=== PATIENT | male | born 1960 | race Caucasian/White ===

== ENCOUNTER 2024-07-21 14:32 | Outpatient (REF) | payer MEDICARE, MEDICAID, SELFPAY ==
[2024-07-21 18:40] LABS: Appearance Urine Clear; Color Urine Yellow; Glucose Urine UA Negative (Negative); Leukocyte Esterase Urine Negative (Negative); Nitrite Urine Negative (Negative); Urine Blood Negative (Negative); Urine Ketones Negative (Negative); Urine Protein Negative (Neg-Trace)
[2024-07-21 18:50] LABS: Protein/Creatinine Ratio, Ur 0.09 (<0.2); Total Protein Urine Random 11 mg/dL (<12)
[2024-07-21 18:53] LABS: Anion Gap 13 (12-20); Blood Urea Nitrogen 23 mg/dL (9-16); Carbon Dioxide 23 mmol/L (22-29); Chloride 107 mmol/L (96-108); Estimated Glomerular Filt Rate > 60; Potassium 4.1 mmol/L (3.3-5.1); Sodium 139 mmol/L (135-145)
[2024-07-24 17:03] LABS: IgA 350 mg/dL (70-320); IgG 1135 mg/dL (600-1540); IgM 59 mg/dL (50-300)
== END 2024-07-21 14:33 | disposition home or self-care (01) ==
LOC: HO.HKASLDS 14:32
PROVIDERS: Visit Provider Internal Medicine Nephrology
DX: N02.B9 Other recurrent and persistent immunoglobulin A nephropathy (principal); I10 Essential (primary) hypertension
CPT/HCPCS: 36415; 80051; 81003; 82565; 82570; 82784; 84156; 84520; 86334; 99202

== ENCOUNTER 2024-07-21 14:32 | Outpatient (AMB) | payer MEDICARE, MEDICAID, SELFPAY ==
--- NOTE | 2024-07-21 14:35 | HO.NEPHOV ---
Vital Signs 07/21/24 14:41 Weight 269 lb 2 oz BP 140/90 H Blood Pressure Location Rt brachial Position Sitting Intake Visit Reasons: DX CKD-Conf [employer] Consultant Required: No Accompanied by: Self / Same As Patient Allergies No Known Allergies Allergy (Verified 07/21/24 14:39) HPI Comments Details: I had the pleasure and privilege of seeing Jose in consultation for transfer of his renal care. He recently has moved to [place] from [place]. 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 He had undergone treatment with high-dose steroids which has been tapered off. He has gained quite a bit of weight on prednisone. He is not a diabetic. He does not monitor his blood pressure at home. He has history of AFib and had undergone cardioversion multiple times. He is currently on diltiazem as well as warfarin. He has hypothyroidism and is well controlled on levothyroxine. He has history of minimal proteinuria and is tolerating lisinopril he had undergone cardiac catheterization in the past but denied any significant coronary artery disease.. He had history of hematuria in the past and has seen urology in [place]. He is known to have a renal cyst but further workup done was negative for hematuria. He has no proteinuria now. He is known to have bilateral carotid disease. He denies any recurrent sinusitis, upper respiratory infection, skin rash. He has history of lymphedema. He does not take nonsteroidal anti-inflammatories and maintain good hydration. He has dyslipidemia and is on statins. He denies chest pain, shortness of breath, paroxysmal nocturnal dyspnea, orthopnea or urinary symptoms. He has not had any blood work done for some time. He claims to be compliant with his medications. [facility] Medical History (Updated 07/21/24 @ 21:50 by David Lao MD) History of cardioversion Low back pain Tabetic joint Benign essential hypertension Anemia Hypothyroidism Open wound of foot Disorder of carotid artery Ventricular premature beats Coronary arteriosclerosis Induratio penis plastica Spasm Unspecified disorder of ankle and foot joint Ulcer of foot Atrial fibrillation Blood in urine Azotemia Methicillin resistant Staphylococcus aureus infection, unspecified site Abscess of foot Chronic renal impairment Renal mass Osteoporosis Blood coagulation disorder Hyperlipidemia Surgical History (Updated 07/21/24 @ 14:39 by Kimberly Sandoval MA) H/O cardiac catheterization History of bunionectomy History of cataract surgery H/O biopsy of kidney H/O thumb surgery H/O ankle fusion H/O foot surgery Family History Mother Diabetes Father No problems noted. Social History (Updated 07/21/24 @ 14:36 by Kimberly Sandoval MA) Alcohol intake: never Patient Tobacco Use Status: Former Tobacco user Review of Systems Const All systems reviewed & are unremarkable except as noted in HPI and below Physical Exam Vital Signs: Last Vital Signs BP 140/90 H 07/21/24 14:41 Const General: comfortable and no acute distress Orientation/consciousness: patient oriented x3 HEENT Head: Yes normocephalic Mouth: Normal oral and palatal mucosa present Eyes EOM: EOMs intact bilaterally Neck Neck: Yes supple Resp Auscultation: clear to auscultation bilaterally Cardio Jugular venous distension: no JVD Rate: regular rate GI Palpation (GI): Soft to palpation Auscultation: normal bowel sounds General: Yes no CVA tenderness Back/Spine/Pelvis Back: no CVA tenderness Skin General skin exam: no rashes or lesions noted Neuro General: patient oriented x3 and moves all extremities Results Reviewed Nephrology Results: Sodium 139 mmol/L (135-145) 07/21/24 Potassium 4.1 mmol/L (3.3-5.1) 07/21/24 Chloride 107 mmol/L (96-108) 07/21/24 Carbon Dioxide 23 mmol/L (22-29) 07/21/24 BUN 23 mg/dL (9-16) H 07/21/24 Creatinine 1.13 mg/dL (0.5-1.4) 07/21/24 Urine Protein Negative mg/dL (Neg-Trace) 07/21/24 Urine Creatinine 123.70 mg/dL 07/21/24 Protein/Creatinin Ratio 0.09 (<0.2) 07/21/24 Assessment & Plan Assessment & Plan (1) Benign essential hypertension: Code(s): I10 - Essential (primary) hypertension Category: Medical (2) IgAN (IgA nephropathy): Code(s): N02.B9 - Other recurrent and persistent immunoglobulin A nephropathy Category: Medical (3) CKD (chronic kidney disease) stage 2, GFR 60-89 ml/min: Code(s): N18.2 - Chronic kidney disease, stage 2 (mild) Category: Medical (4) Renal cyst: Code(s): N28.1 - Cyst of kidney, acquired Category: Medical Plan Jose has mild CKD from biopsy-proven IgA nephropathy. He has hypertension. He is on MARY inhibitor. He needs to lose weight. The diltiazem he takes for rate control also ARB helping with his proteinuria. He needs to cut back sodium in the diet and should maintain good hydration. I have ordered labs after today's office visit along with the imaging studies. He is on statins. He avoids nonsteroidal anti-inflammatories. He will benefit from taking fish oil. I did not make any medication changes today but rather discussed IgA nephropathy, hypertension, renal cyst its follow-up and continued management strategies. Answered all questions. Follow-up appointment given Orders: Orders UA and rflx microscopic Today I10 - Essential (primary) hypertension, N02.B9 - Other recurrent and persistent immunoglobulin A nephropathy Electrolytes Today I10 - Essential (primary) hypertension, N02.B9 - Other recurrent and persistent immunoglobulin A nephropathy Protein Creatinine Ratio, Ur Today I10 - Essential (primary) hypertension, N02.B9 - Other recurrent and persistent immunoglobulin A nephropathy Immunofixation Pnl, Serum Today I10 - Essential (primary) hypertension, N02.B9 - Other recurrent and persistent immunoglobulin A nephropathy Blood Urea Nitrogen Today I10 - Essential (primary) hypertension, N02.B9 - Other recurrent and persistent immunoglobulin A nephropathy Creatinine Today I10 - Essential (primary) hypertension, N02.B9 - Other recurrent and persistent immunoglobulin A nephropathy US renal BI 1 Month I10 - Essential (primary) hypertension, N02.B9 - Other recurrent and persistent immunoglobulin A nephropathy US renal doppler 1 Month I10 - Essential (primary) hypertension, N02.B9 - Other recurrent and persistent immunoglobulin A nephropathy Coding Level of Care Code New Pt Level 4 (45802) Diagnoses Benign essential hypertension I10 IgAN (IgA nephropathy) N02.B9 CKD (chronic kidney disease) stage 2, GFR 60-89 ml/min N18.2 Renal cyst N28.1
[2024-07-21 14:41] VITALS: BP 140/90
--- OUTSIDE RECORDS SUMMARY | 2024-07-21 17:25 | XMS_ITS | Data Portability ---
Author Organization [facility] Urology Address [address] [facility] [address] [place] [address] Care Team Providers Care Paste Maker Name Role Phone BUCK SINCLAIR Bilingual Medical Assistant NANO MAY Primary Care Provider [phone] PANCHO BARRERA Urologist [phone] SINCERE WILLIAM Clinical Cardiac Electrophysiolo gist Assessment No assessment recorded. Plan of Treatment Reminders Order Date Submit Date Provider Last Modified By Organization Details Last Modified Time Details Appointments *Follow-u p 15 2024 08:15A M Pancho Barrera, DO Not available Not available Not available Est Patient 15m 2024 01:45P M Buck Sinclair MD Not available Not available Not available Est Patient 15m 2024 09:15A M Sincere William MD Not available Not available Not available Lab PSA, serum or plasma 2022 024 [email or web address] [facility], [address] [facility], [place], [address], 07/25/2023 08:25:57 Referral None recorded. Procedures None recorded. Surgeries None recorded. Imaging electroca rdiogram 2024 025 [email or web address] [facility], [address] [facility] [address], [place], [address], 05/18/2024 12:34:41 electroca rdiogram 2023 024 [email or web address] [facility], [address] [facility] [address], [facility] [place], [address], 11/14/2023 10:25:11 US, renal 2023 025 [email or web address] [facility] [place] [facility], [address] [facility], [place], [address], 07/29/2023 08:42:48 US, duplex, carotid artery 2023 024 [place], [address] [place], [address], 11/17/2023 14:12:54 US, echocardi ogram, transthor acic, complete, w/ color flow - In october 20232023 024 [place], [address] [place], [address], 11/17/2023 13:46:56 Medication Orders None recorded. Patient TargetsNo targets recorded. Patient Instructions Encounter Date Encounter Id Patient Instructions Last Modified By Organization Details Last Modified Time 07/12/2023 [id number] RTO in 6 months Not available 07/12/2023 14:07:02 02/03/2024 [id number] RTO in 6 months Not available 02/03/2024 13:14:43 Reason for Referral None Reported. Results Created Date Observation Date Name Description Value Unit Range Abnormal Flag Note LastModifiedBy Organization Detail LastModifiedTime 07/15/19 24 07/15/2023 PSATO T PSA total 0.48 NG/mL 0.01-4 .00 PSA total is a Chemi lumin escen t Immun oassa y manuf actur ed by Chad ann [employer] Value s obtai agueda with diffe rent metho ds/ma nufac turer s canno t be used inter santana eably . Perfo rmed at: [facility], [address], Tab s-Bar [place] [address] , [place] # [id number] , Medic al Direc tor: Manish Colón M.D. Not Available [facility] (Lab) [address] [place] [address], [place], [address], 07/15/2023 09:24:37 07/17/19 24 07/15/2023 , ariadna mejía [facility] MIRIAM Rudd MRN:[id number] t: : 961 Sex Male : Locati o PAWBTP S RA2 n: Orderi ng Physic jesus: SKYLER BIGGS DO Ultras ound ACCESS ION EXAM DATE/T STEFANO 606-24 -085-0 0021 024 07:43 EDT Reason For Exam CYST OF KIDNEY Report Renal sonogr am Clinic al histor y: Renal cyst Refere nce exam: July 17, 2022 Techni que: Real-t stefano sonogr aphy was direct to the kidney s. Findin gs: The right kidney measur es 12.4 x 6.1 x 5.2 cm in dimens ion. There is a column of Gregory in the right kidney . The left kidney measur es 12.4 x 4.2 x 4.7 cm in dimens ion. Cortic al thickn ess and echoge nicity are within normal limits . There is a 9 x 8 x 10 mm anecho ic mass in the left lower parape lvic region , compat ible with a small peripe lvic cyst. There are no renal calcul i and there is no hydron ephros is. The bladde r is incomp letely disten ded. Impres rika: Small parape lvic cyst in the lower pole of the left kidney . Otherw ise unrema rkable examin ation. Final Signed by: TYRON HESS MD Signed (Elect ronsaray Signat ure): 2023 04:22 pm EDT Rad Image Link [email or web address] [facility] (Imaging) [address] [place], [place] [address] [place], [address], 07/29/2023 08:35:44 11/14/19 24 elect uday venegas am No observ ation record ed. TERELL [facility] [address] [facility] [address], [place], [address], 11/14/2023 10:25:05 11/17/19 24 11/13/2023 US, echoc ardio gram, trans thora cic, compl ete, w/ color flow [facility] - Diagno stic [facility] SORAIDA TOYA, MIRIAM [id number] t: : 89 Sex Male : Locati o PAWBFF RA6 n: Reuben beth Physic jesus: BUCK SINCLAIR MD Non-In vasive Cardio logy ACCESS ION EXAM DATE/T STEFANO 601-24 -206-0 0017 024 09:44 EDT Reason For Exam Nonrhe umatic mitral (valve ) insuff icienc y Report Transt horaci c Echoca rdiogr aphy Report (TTE) Demogr aphics Pativilma [place] Date of Study 2023 Name MIRIAM Study Locati on: [facility] 0 Room Number Access ion # [id number] Referr lindsey Rose M.D. Physic jesus Schmid DO Date of 1960 Ordermat Rose M.D. Physic jesus Age 63 year(s ) Sonogr apher [facility] Gender Male Interp reting WILL Rose M.D. Physic jesus Race Caucas jesus Nurse / Tech Proced ure Type of Study TTE proced ure:NI ECHO TTE 2D COMPLE TE W COLOR DOPPLE R & SPEC DOP. Techni miriam Qualit y: Good visual izatio n Indica tions: Nonrhe umatic Mitral Insuff icienc y. Patien t Status : Routin e Height : 72 inches Weight : 259.01 pounds BSA: 2.38 m^2 BMI: 35.13 kg/m^2 Rhythm : Atrial fibril lation HR: 75 bpm BP: 126/76 mmHg Conclu sions 2D Comple te, Color Flow Dopple r, and Spectr al Dopple r images were obtain ed. Summar y Non-In vasive Cardio logy Report Left ventri robert size is normal in size. Mild concen tric left ventri cular hypert rophy. Ejecti on fracti on is visual ly estima frieda at 50-55% . The left atrium is Modera tely dilate d. Mildly enlarg ed right atrium size. No hemody namica lly signif icant valvul ar aortic stenos is. Mild Aortic Valve Sclero sis. The aortic valve is trilea flet. No eviden ce of aortic valve regurg itatio n . Modera te mitral regurg itatio n is presen t. Mild mitral annula r calcif icatio n is presen t. There is no eviden ce of mitral valve prolap se. Mild mitral valve sclero sis is noted. Mild tricus pid regurg itatio n. Mildly dilate d aortic root.3 .8cm. Signat ure ------ ------ ------ ------ ------ ------ ------ ------ ------ ------ ---- Electr onical ly signed by WILL lee) on 2023 at 01:46 PM ------ ------ ------ ------ ------ ------ ------ ------ ------ ------ ---- Valves Mitral Valve Tissue Dopple r E' Septal Veloci ty: 11.8 cm/s E' Latera l Veloci ty: 10.6 cm/s Aortic Valve Cusp Separa tion: 2.5 cm Tricus pid Valve Estima frieda RVSP: 26 mmHg Estima frieda RAP: 3 mmHg TR Veloci ty: 242 cm/s TR Gradie nt: 23.43 mmHg Pulmon ic Valve Estima frieda PASP: 26.43 mmHg LVOT LVOT Diamet er: 2.3 cm Struct ures Left Atrium LA Dimens ion: 4.5 cm LA Area: 25.9 cm^2 LA/Aor ta: 1.18 LA Volume /Index : 88 ml /37m^2 Left Ventri robert Diasto lic Dimens ion: 4.99 cm Systol ic Dimens ion: 3.31 cm Septum Diasto lic: 1.36 cm PW Diasto lic: 1.41 cm Area Systol ic: 17.2 cm^2 Area Diasto lic: 26.4 cm^2 FS: 33.7 % Non-In vasive Cardio logy Report LV EDV/LV EDV Index: 76 ml/32 m^2 LV ESV/LV ESV Index: 37 ml/16 m^2 EF Calcul ated: 51.3 % LV Length : 7.11 cm LVOT Diamet er: 2.3 cm Stroke Index (SI):1 6.4 ml/m^2 Stroke Volume (SV):7 3 ml Right Atrium RA Systol ic Pressu re: 3 mmHg Right Ventri robert RV Systol ic Pressu re: 26.43 mmHg Aorta / Great Vessel s Aorta Aortic Root: 3.8 cm LVOT Diamet er: 2.3 cm Vena Cava IVC Expiri um: 1.73 cm Findin gs Mitral Valve Modera te mitral regurg itatio n is presen t. Mild mitral annula r calcif icatio n is presen t. There is no eviden ce of mitral valve prolap se. Mild mitral valve sclero sis is noted. Aortic Valve No hemody namica lly signif icant valvul ar aortic stenos is. Mild Aortic Valve Sclero sis. The aortic valve is trilea flet. No eviden ce of aortic valve regurg itatio n . Tricus pid Valve Mild tricus pid regurg itatio n. Pulmon ic Valve The pulmon ic valve was not well visual ized . Left Atrium The left atrium is Modera tely dilate d. Left Ventri robert Left ventri robert size is normal in size. Mild concen tric left ventri cular hypert rophy. Ejecti on fracti on is visual ly estima frieda at 50-55% . Right Atrium Mildly enlarg ed right atrium size. Right Ventri robert Normal right ventri robert struct ure and functi on. Perica rdium No eviden ce of perica rdial effusi on. Pleura No eviden ce of pleura l effusi on. Non-In vasive Cardio logy Report Aorta/ Great Vessel s Mildly dilate d aortic root.3 .8cm. Signat ure ------ ------ ------ ------ ------ ------ ------ ------ ------ ------ ---- Electr onical ly signed by WILL Rose M.D. (Kadi pretin g sarah jesus) on 2023 at 01:46 PM ------ ------ ------ ------ ------ ------ ------ ------ ------ ------ ---- Final Signed by: BUCK SINCLAIR MD Signed (Elect alissa Signat ure): 2023 01:46 pm EDT [facility] (Imaging) [address] [place] [address], [address], 11/18/2023 14:54:38 11/17/19 24 11/13/2023 US, anthony x, david id arter y [facility] - Diagno stic [facility] MIRIAM ANDERSON MRN:[id number] t: : 89 Sex Male : Locati o PAWBFF RA6 n: Orderi ng Physic jesus: BUCK SINCLAIR MD Ultras ound ACCESS ION EXAM DATE/T STEFANO 601-24 -206-0 0018 024 08:30 EDT Reason For Exam Occlus ion and stenos is of bilate ral caroti d arteri es Report TYPE OF EXAM: Caroti d Duplex Ultras ound Clinic al Histor y:Degroot tid diseas e. Both caroti d bifurc ations were evalua frieda using both 2D and color Dopple r imagin g as well as Dopple r spectr al analys is. Peak Veloci ties, are measur ed in cm/sec , and are as follow s. The measur ement of the caroti d stenos is is based on veloci ty parame ters that correl ate with residu al internal combustion engine assembler al caroti d diamet er, in accord ance with [place] Sympto matic Caroti d Endart erecto my Trial (NASCE T)- based stenos is levels . RIGHT CAROTI D: Mild plaque s in the internal combustion engine assembler al caroti d bulb. CCA: 86 cm/sec ond. ICA: 55 cm/sec ond. ECA: 88 cm/sec ond. ICA / CCA ratio: 0.6. LEFT CAROTI D: Mild plaque s in the internal combustion engine assembler al caroti d bulb. CCA: 78cm/s econd. ICA: 62 cm/sec ond. ECA: 78 cm/sec ond. ICA / CCA ratio: 0.8. VERTEB RAL ARTERY : Antegr raya flow noted in both verteb ral arteri es. IMPRES RIKA: 1. Mild athero sclero tic plaque noted in both right internal combustion engine assembler al and hvac engineer al caroti d artery with an estima frieda obstru ction of less than 50%. 2. Mild athero sclero tic plaque noted in both left internal combustion engine assembler al and hvac engineer al caroti d artery with an estima frieda obstru ction of less than 50%. 3. Antegr raya flow is seen in both verteb ral arteri es. Final Signed by: BUCK SINCLAIR MD Signed (Elect alisas Signat ure): 2023 02:11 pm EDT Rad Image Link [email or web address] [facility] (Imaging) [address] [facility], [place], [address], 11/18/2023 14:54:38 11/20/19 24 elect uday venegas am No observ ation record ed. TERELL [facility] [address] [facility] [address], [place], [address], 11/20/2023 09:19:32 05/18/19 25 elect rocar diogr am No observ ation record ed. TERELL [facility] [address] [facility] [address], [place], [address], 05/18/2024 12:34:40 05/20/19 25 elect rocraymond diogr am No observ ation record ed. TERELL [facility] [address] [facility] [address], [place], [address], 05/20/2024 15:07:43 Result Notes None recorded. Problems Name Problem SNOMED Code Status Onset Date Resolution Date Notes Provider Name and Address Organization Details Recorded Time Benign essential hypertensio n 7136659 Active 2011 Chroni c; Kellen Zhang , [employer] null, [place] [facility] 3 08:47:59 Anemia 252720990 Active 2011 Chroni c; Kellen Zhang , [employer] null, [place] [facility] 3 08:48:00 Hyperlipide ladan 50695018 Active 2011 Chroni c; Kellen Zhang , [employer] null, [place] [facility] 3 08:48:00 Venous varices 331274250 Active 2014 Kellen Zhang [employer] null, [place] [facility] 3 08:47:59 Open wound of foot 824824847 Active 2014 Kellen Zhang [employer] null, [place] [facility] 3 08:47:59 Coronary arterioscle rosis 32952972 Active 2014 Kellen Zhang [employer] null, [place] [facility] 3 08:48:00 Disorder of carotid artery 190675119 Active 2015 Kellen Zhang [employer] null, [place] [facility] 3 08:48:00 Ventricular premature beats 15160627 Active 2015 Kellen Zhang LPN null, [place] [facility] 3 08:47:59 Blood coagulation disorder 70732760 Active 2019 Kellen Zhang LPN null, [place] [facility] 3 08:48:00 Atrial fibrillatio n 03357051 Active 2017 Kellen Zhang LPN null, [place] [facility] 3 08:48:00 Blood in urine 16783642 Active 2018 Kellen Zhang LPN null, [place] [facility] 3 08:48:00 Azotemia 786833594 Active 2018 Kellen Zhang LPN null, [place] [facility] 3 08:48:00 Feces contents abnormal 563825126 Active 2018 Kellen Zhang LPN null, [place] [facility] 3 08:47:59 Methicillin resistant Staphylococ cus aureus infection 211124180 Active 2018 Kellen Zhang LPN null, [place] [facility] 3 08:47:59 Abscess of foot 109572484 Active 2018 Kellen Zhang LPN null, [place] [facility] 3 08:48:00 Chronic renal impairment Active 2018 Kellen Zhang LPN null, [place] - [facility] 3 08:47:59 Renal mass 338210911 Active 2018 Kellen Zhang LPN null, [place] [facility] 3 08:48:00 Osteoporosi s 98888838 Active 2018 Kellen Zhang LPN null, [place] [facility] 3 08:48:00 Induration penis plastica 7870308 Active 2016 Kellen Zhang LPN null, [place] [facility] 3 08:47:59 Spasm 35818592 Active 2016 Kellenmona Zhang LPN null, [place] - [facility] 3 08:48:00 Disorder of joint of ankle and/or foot 187096269 Active 2017 Kellen Zhang LPN null, [place] [facility] 3 08:48:00 Ulcer of foot 13113903 Active 2017 Kellenmona Zhang LPN null, [place] - [facility] 3 08:48:00 Hypothyroid ism 51546801 Active 2002 Kellen Zhang LPN null, [place] [facility] 3 08:48:00 Cyst of kidney 807999071 Active 2021 Kellen Zhang LPN null, [place] - [facility] 3 08:48:00 Benign prostatic hyperplasia with outflow obstruction 784202525 Active 2021 Kellenmona Zhang LPN null, [place] - [facility] 3 08:47:59 Ankle joint pain 346143439 Active 2003 Kellen Zhang LPN null, [place] [facility] 3 08:47:59 Charcot's arthropathy 115968040 Active 2018 Kellen Zhang LPN null, [place] - [facility] 3 08:48:00 Hypertensiv e disorder 28989261 Active 2003 Kellen Zhang LPN null, [place] [facility] 3 08:48:00 Disorder of the peripheral nervous system 36815844 Active 2002 Kellen Zhang LPN null, [place] - [facility] 3 08:48:00 Persistent atrial fibrillatio n 258935531 Completed 201803/31/2019 Kellen Zhang LPN null, [place] - [facility] 3 08:48:00 Acquired hallux malleus 06486820 Active 2005 Kellen Zhang LPN null, [place] [facility] 3 08:48:00 Varicose veins of lower limb co-occurren t with edema 236778242 Active 2022 Kenyon Browne MD [address] [place], [address], [place] [facility] 3 15:16:46 Varicose veins of lower extremity 65371059 Active 2022 Kenyon Browne MD [address] [place], [address], [place] [facility] 3 15:18:10 Lymphedema 906115300 Active 2023 Kenyon Browne MD [address] [place], [address], [place] [facility] 4 09:39:47 Mitral valve regurgitati on 35753030 Active 2023 Buck Sinclair MD [address] [place], [address], [place] [facility] 4 14:05:39 Bilateral stenosis of carotid arteries 294972249 Active 2023 Buck Sinclair MD [address] [place], [address], [place] [facility] 4 14:05:46 Notes:Some problems listed i n Document: #[id number] could not be added to this patient's chart. Please review this document and add these problems to the patient's chart manually as needed. Problem Notes None recorded. Procedures Surgical History Date Name Laterality Status Provider Name and Address Organization Details Recorded Time 07/29/19 24 IPSS completed Mimi Ruiz LPN [facility] 07/29/2023 08:30:27 06/11/19 24 Surgery Center - PVR completed Kenyon Browne MD [address] [place], [address], [place] [facility] 06/11/2023 09:09:42 06/11/19 24 Surgery Center [facility] Lower Extremities / Bypass Graft completed Briseida Valencia [facility] [place] - [facility] 06/11/2023 08:58:00 02/13/20 23 Surgery Center [facility] [place] Lower Extremity Venous completed Briseida Valencia [facility] PA - [facility] 02/12/2023 14:54:59 07/31/19 23 IPSS completed Meredith Millereras [facility] - [facility] 07/30/2022 08:37:06 01/17/20 22 Surgery [facility] [place] Lower Extremity Venous completed Owen Olivo MD [address] [place], [address], [place] - [facility] 01/16/2022 11:29:21 04/22/19 22 surgery of cataract of left eye completed Meredith Millereras [facility] - [facility] 07/30/2022 08:42:54 01/03/20 21 Surgery [facility] PVR completed Owen Olivo MD [address] [place], [address], [place] [facility] 01/03/2021 09:31:21 01/03/20 21 Surgery [facility] [place] Lower Extremity Venous completed Andres Neville MD [address] [place], [address], [place] - [facility] 01/03/2021 12:53:06 stripping of vein completed Kellen Zhang LPN [place] [facility] 07/31/2021 09:39:51 excision of bunion completed Kellen Zhang LPN [facility] - [facility] 07/31/2021 09:41:44 kidney biopsy completed Kellen Zhang LPN [facility] 07/31/2021 09:43:00 cardioversion completed Kellen Zhang LPN [facility] - [facility] 07/31/2021 09:44:15 Imaging Results Imaging Date Name Status LastModified by Organization Details LastModified Time 07/15/2023 US, kidney completed [address] (Imaging) [address] [place] [address], [address], 07/29/2023 08:35:44 11/14/2023 electrocardiogram completed [facility] [address], [address], 11/14/2023 10:25:05 11/13/2023 US, echocardiogram, transthoracic, complete, w/ color flow completed [facility] (Imaging) [address] [place] [address], [address], 11/18/2023 14:54:38 11/13/2023 US, duplex, carotid artery completed [facility] (Imaging) [address] [place] [address], [address], 11/18/2023 14:54:38 11/20/2023 electrocardiogram completed [facility] [address], [address], 11/20/2023 09:19:32 05/18/2024 electrocardiogram completed [facility] [address], [address], 05/18/2024 12:34:40 05/20/2024 electrocardiogram completed [facility] [address] [place] [address], [address], 05/20/2024 15:07:43 Procedure Notes None recorded. Medical Equipment None Reported. Allergies Allergen ID Allergen Name Allergen Category Reaction Reaction Severity Criticality Documentation Date Start Date Code Code System Note Provider Name and Address Organization Details Recorded Time [id number] ethinyl estradiol / levonorge strel medicatio n Not available Not available Not available 01/16/2021 20429 8 RxNorm Lyn Shirley LPN [facility], [place] - [facility] 14:43:13 Medications Name Sig Start Date Stop Date Status Note LastModified by Organization Details LastModified Time flucelvax quad (med b) 2020- (prefill) eaches VACCINE active Not Available Not Available Not Available covid -19 antigen test medicare each 11/06 completed Not Available Not Available Not Available levothyro xine 175 mcg tablet 07/11 completed Not Available Not Available Not Available gabapenti n 600 mg tablet 07/14 completed Not Available Not Available Not Available doxycycli ne hyclate 100 mg capsule active Not Available Not Available Not Available diltiazem ER 180 mg capsule,2 4 hr,extend ed release Take 240 mg by oral route. 11/06 completed Not Available Not Available Not Available diltiazem CD 180 mg capsule,e xtended release 24 hr TAKE 1 CAPSULE BY MOUTH TWICE DAILY 05/02 completed Not Available Not Available Not Available diltiazem CD 240 mg capsule,e xtended release 24 hr TAKE ONE (1) CAPSULE BY MOUTH TWICE DAILY active Not Available Not Available No t Available amlodipin e 5 mg tablet 07/14 completed Not Available Not Available Not Available sulfameth oxazole 800 mg-trimet hoprim 160 mg tablet 06/11 completed Not Available Not Available Not Available sotalol 120 mg tablet Take 1 tablet twice a day by oral route. 05/02 completed Not Available Not Available Not Available ketorolac 0.5 % eye drops 10/31 completed Not Available Not Available Not Available cefadroxi l 500 mg capsule 06/11 completed Not Available Not Available Not Available prednisol one acetate 1 [facility] 11[facility]06 completed Not Available Not Available Not Available linezolid 600 mg tablet active Not Available Not Available Not Available cephalexi n 500 mg capsule Take 2 capsules twice a day by oral route. 02/02 completed Not Available Not Available Not Available lisinopri l 10 mg tablet 1 daily active Not Available Not Available Not Available warfarin 2 mg tablet TAKE TWO (2) TABLETS BY MOUTH DAILY 2024 active Not Available Not Available Not Avai lable warfarin 5 mg tablet 07/31 completed Not Available Not Available Not Available levothyro xine 150 mcg tablet Take 1 tablet every day by oral route for 90 days. active Not Available Not Available No t Available gabapenti n 300 mg capsule 07/14 completed Not Available Not Available Not Available levothyro xine 200 mcg tablet Take 200 ugs by oral route. 11/06 completed Not Available Not Available Not Available mupirocin 2 % topical ointment active Not Available Not Available Not Available methylpre dnisolone 4 mg tablets in a dose pack 12/29 completed Not Available Not Available Not Available fluticaso ne propionat e 50 mcg/actua tion nasal spray,marleny pension active Not Available Not Available Not Available enoxapari n 100 mg/mL subcutane ous syringe Inject 1 mL every 12 hours by subcutan eous route. 11/06 completed Not Available Not Available Not Available enoxapari n 120 mg/0.8 mL subcutane ous syringe INJECT CONTENTS OF SYRING (0.8 ML) EVERY 12 HOURS SUCUTANE OUSLY FOR 5 DAYS. 3 DAYS PRIOR TO PROCEDUR E, NONE THE DAY OF THE PROCEDUR E (07/31 completed Not Available Not Available Not Available moxifloxa romy 0.5 % eye drops LOCATION [facility]. ADMINIST ER 1 DROP IN THE [facility] 4 TIMES A DAY 07/31 completed Not Available Not Available Not Available rosuvasta tin 5 mg tablet TAKE 1 TABLET BY MOUTH EVERY DAY active Not Available Not Available No t Available chlorhexi dine gluconate 0.12 % mouthwash 11/06 completed Not Available Not Available Not Available cholecalc iferol (vitamin D3) 1 cap by mouth three times a day active Not Available Not Available No t Available diclofena c 1 % topical gel active Not Available Not Available Not Available Eliquis 5 mg tablet Take 1 tablet twice a day by oral route. 07/11 completed Pt will be switchin g over to Eliquis in the next month Not Available Not Available Not Available Magnesium (oxide/AA chelate) 1 cap tid active Not Available Not Available No t Available Flucelvax Quad 60 mcg (15 mcg x 4)/0.5 mL intramusc ular susp 07/14 completed Not Available Not Available Not Available BinaxNOW COVID-19 Ag Self Test kit Use as Directed on the Package 11/06 completed Not Available Not Available Not Available Paxlovid 150 mg-100 mg tablets in a dose pack (Renal Dose) take 1 NIRMATRE LVIR tablet with 1 RITONAVI R tablet twice a day for 5 days 07/03 completed Not Available Not Available Not Available Vitals Date Recorded Body height Body mass index (BMI) Body weight Heart rate Systolic blood pressure Diastolic blood pressure Provider Name and Address Organization Details Last Updated DateTime 4 182.88 cm 36.5 kg/m2 894357. 35 g 82 /min 128 mm[Hg] 80 mm[Hg] Viviana Beckman [facility] 4 13:09:17 Date Recorded Body height Body mass index (BMI) Body weight Systolic blood pressure Diastolic blood pressure Provider Name and Address Organization Details Last Updated DateTime 07/29/2023 182.88 cm 36.5 kg/m2 819806.3 5 g 110 mm[Hg] 80 mm[Hg] Mimi Ruiz LPN [facility] 4 08:26:19 Date Recorded Body height Body mass index (BMI) Body weight Heart rate Oxygen saturation Oxygen saturation in Arterial blood by Pulse oximetry Systolic blood pressure Diastolic blood pressure Provider Name and Address Organization Details Last Updated DateTime 4 182.88 cm 35.1 kg/m2 841923. 42 g 89 /min 98 % 98 % 142 mm[Hg] 86 mm[Hg] Kaya Blanco MA [facility] 4 10:11:06 Date Recorded Body height Body mass index (BMI) Body weight Heart rate Systolic blood pressure Diastolic blood pressure Provider Name and Address Organization Details Last Updated DateTime 4 182.88 cm 34.6 kg/m2 349386. 05 g 84 /min 120 mm[Hg] 82 mm[Hg] Marilou Lees MA [facility] 4 12:41:22 Date Recorded Body height Body mass index (BMI) Body weight Heart rate Respiratory rate Oxygen saturation Oxygen saturation in Arterial blood by Pulse oximetry Provider Name and Address Organization Details Last Updated DateTime 5 182.88 cm 35.3 kg/m2 919155. 02 g 110 /min 16 /min 98 % 98 % Zita Vazquez MA [facility] 5 12:20:09 Date Recorded Systolic blood pressure Diastolic blood pressure Provider Name and Address Organization Details Last Updated DateTime 05/18/2024 148 mm[Hg] 84 mm[Hg] Sincere William MD [address] [place] [address], [id number], [facility] 05/18/2024 12:28:06 Social History Question Answer Notes LastModified by Organizat ion Details LastModified Time Tobacco Smoking Status Former Smoker JOHN Reich, [facility] 07/14/2020 13:40:11 Do You Have An Advance Directive? No Information not available 05/03/2022 What Is Your Level Of Alcohol Consumption? None Information not available 07/31/2021 What Is Your Level Of Caffeine Consumption? Occasional Information not available 07/31/2021 Do You Or Have You Ever Used E-cigarettes Or Vape? Never Used Electronic Cigarettes Information not available 07/14/2020 When Did You Quit Smoking? 16+yearssincel [email or web address] Information not available 10/31/2021 Do You Have A Medical Power Of Materials Research Engineer? No Information not available 05/03/2022 What Was The Date Of Your Most Recent Tobacco Screening? 07/29/2023 [email or web address] Information not available 07/29/2023 Do You Or Have You Ever Used Smokeless Tobacco? Never Used Smokeless Tobacco Information not available 07/14/2020 Do You Use Any Illicit Or Recreational Drugs? No Information not available 05/03/2022 Do You Or Have You Ever Used Any Other Forms Of Tobacco Or Nicotine? No [email or web address] Information not available 01/16/2021 Sex: Unknown Functional Status None recorded. Mental Status None recorded. Family History Relationship Description Onset Age of this Age Resolved Age Notes LastModified by Organization Details LastModified Time Mother Diabetes mellitus [email or web address] Not available 07/21 09:36:15 Medical History Condition Response Coronary Artery Disease Y Other N Atrial Fibrillation Y Colon Cancer N Kidney Stones N Hyperthyroidism N Enlarged Prostate N Cancer: Specify N COPD N Depression N Lung Disease N Hypothyroidism Y Glaucoma N Degenerative Joint Disease N Valve Disorder N TIA N Congestive Heart Failure N Enterocolitis N Obstructive Sleep Apnea N Seasonal Allergies N Anxiety Disorder N Respiratory Disorder N Arthritis N Diverticulosis N DVT/Pulmonary Embolism N GERD / heartburn N Crohn's Disease N Inflammatory Bowel Syndrome N Hypercholesterolemia N Liver Disease N Other Sleep Disorders N Rheumatoid Arthritis N Alcohol Abuse N Fibromyalgia N Headaches N Hiatal Hernia N Kidney Disease N Heart Problems Y Hospitalizations N Gallstones N Abdominal Aortic Aneurysm N Thyroid Problems N DVT N Avoidant/Restrictive Food Disorder N PTSD N PATIENT DENIES SIGNIFICANT PAST MEDICAL HISTORY N Constipation N Heart Attack ([place]) N Neurological Problems N Diabetes N Rheumatic Fever N Bleeding Disorder N Seizures/Epilepsy N Chronic Bronchitis N Hyperlipidemia Y Back Problems N Chronic Pain N Diverticulitis N Dementia N Asthma N Substance Abuse N Hepatitis N Stroke/CVA N Aneurysm N Colon Polyp N Heart Disease Y Acute Respiratory Distress N Anemia/Blood Disorder Y Hypertension Y Osteoporosis N Immunizations Vaccine Type Date Status Note Provider Nam e and Address Organization Details Recorded Time influenza, unspecified formulation 12/14/2019 completed Kellen Zhang LPN null, [facility] 07/30/2022 08:48:00 Influenza, recombinant, quadrivalent, PF 01/21/2019 completed Kellen Zhang [employer] null, [facility] 07/30/2022 08:48:00 Td(adult) unspecified formulation 05/16/2009 completed Kellen Zhang [employer] null, [facility] 07/30/2022 08:48:00 SARS-COV-2 (COVID-19) vaccine, UNSPECIFIED 04/22/2020 completed Kellen Zhang [employer] null, [facility] 07/30/2022 08:48:00 SARS-COV-2 (COVID-19) vaccine, UNSPECIFIED 05/23/2020 completed Kellen Iacobacci, [employer] null, [facility] 07/30/2022 08:48:00 SARS-COV-2 (COVID-19) vaccine, UNSPECIFIED 02/16/2021 completed Kellen Iacobacci, [employer] null, [facility] 07/30/2022 08:48:00 COVID-19, mRNA, LNP-S, PF, 100 mcg/0.5mL dose or 50 mcg/0.25mL dose 05/14/2020 completed Kellen Iacobacci, [employer] null, [place] [facility] 07/30/2022 08:48:00 COVID-19, mRNA, LNP-S, PF, 100 mcg/0.5mL dose or 50 mcg/0.25mL dose 06/18/2020 completed Kellen Iacobacci, [employer] null, [place] [facility] 07/30/2022 08:48:00 COVID-19, mRNA, LNP-S, PF, 100 mcg/0.5mL dose or 50 mcg/0.25mL dose 07/24/2021 completed Kellen Iacobacci, [employer] null, [place] [facility] 07/30/2022 08:48:00 COVID-19, mRNA, LNP-S, PF, 100 mcg/0.5mL dose or 50 mcg/0.25mL dose 02/16/2021 completed Kellen Iacobacci, [employer] null, [place] [facility] 07/30/2022 08:48:00 Influenza, split virus, quadrivalent, PF 12/27/2020 completed Kellen Iacobacci, [employer] null, [place] [facility] 07/30/2022 08:48:00 Past Encounters Encounter ID Performer Location Encounter Start Date Encounter Closed Date Diagnosis/Indication Diagnosis SNOMED-CT Code Diagnosis ICD10 Code Diagnosis Note [id number] Buck Sinclair MD [facility] [address] [place] [address] 07/14/2020 13:34:25 07/14/2020 14:20:05 Atrial fibrillation 02461317 I48.91 on sotalol and Warfarin Coronary arteriosclerosis 53321576 I25.10 On Crestor Hyperlipidemia 10721524 E78.5 Crestor Benign ess ential hypertension 8176649 I10 on diltiazem Dyspnea 898398730 R06.00 Short of b reath dressing/undressing 870861459 R06.02 [id number] Sincere William MD [facility]_W [facility] [address] [address] 10/27/2020 11:07:48 10/27/2020 12:10:52 Atrial fibrillation 60217595 I48.91 Remains in A. fib with well-contr olled rates. Continue diltiazem sotalol and Coumadin. We are now getting to the point where restoratio n of sinus rhythm is probably going to be difficult to achieve. May consider discontinu ing sotalol in favor of metoprolol . Ablation window was also probably narrowing at this point. Benign ess ential hypertension 2261603 I10 Blood pressure stable. Continue diltiazem Blood in urine 68608706 R31.9 No further recurrence of hematuria. Continue Coumadin. If bleeding recurs consider left atrial appendage occlusion. [id number] Andres Neville MD [facility] [address] [place] [address] 01/02/2021 13:52:20 01/03/2021 15:03:57 Venous varices 151714832 I83.93 [id number] Owen Olivo MD [facility] [address] [place] [address] 01/02/2021 13:54:12 01/05/2021 09:46:47 Abscess of foot 405927494 L02.619 Disorder o f joint of ankle and/or foot 433162662 M12.872 Open wound of foot 97989 3008 S91.302D Ulcer of foot 11237553 L 97.521 Venous varices 825598818 I83.93 [id number] Owen Olivo MD [facility] [address] [place] [address] 01/16/2021 14:36:25 01/16/2021 15:02:05 Varicose veins of lower extremity 29463996 I83.91 Patient with asymptomat ic right lower extremity varicose veins plan to see him back in a year with a repeat venous Doppler otherwise I am going to set him up with a Farrow wrap for his right leg. [id number] MD Adilson LyonsZZCONCEPCIÓN_6 [facility] [address] [facility], [address] [place] [address] 01/17/2021 14:54:49 01/17/2021 16:26:54 Atrial fibrillation 17146445 I48.91 on sotalol and Warfarin Benign ess ential hypertension 2538684 I10 on diltiazem Coronary arteriosclerosis 22858011 I25.10 On Crestor Hyperlipidemia 22242540 E78.5 Crestor Mitral kelton ve regurgitation 71941135 I34.0 for 2 D echo [id number] MD FLORA PaulD_W [facility] 545 [facility] [address] [place] [address] [place] [address] 05/02/2021 09:20:55 05/02/2021 13:44:46 Atrial fibrillation 40082044 I48.91 Remains in A. fib with well-contr olled rates. Because of his fatigue and dyspnea on exertion will discontinu e sotalol and use diltiazem alone for rate control. Hopefully this will help improve some of his fatigue and shortness of breath. Benign ess ential hypertension 2594421 I10 Blood pressure stable. Continue diltiazem Blood in urine 32789520 R31.9 No further recurrence of hematuria. Continue Coumadin. If bleeding recurs consider left atrial appendage occlusion. [id number] MD Adilson LyonsZZCONCEPCIÓN_6 [facility] [address] [facility], [address] [place] [address] 06/26/2021 12:40:03 06/26/2021 13:40:38 Atrial fibrillation 74575980 I48.91 on sotalol and Warfarin Benign ess ential hypertension 7511727 I10 on diltiazem Coronary arteriosclerosis 81933884 I25.10 On Crestor Hyperlipidemia 67295459 E78.5 Crestor Bilateral carotid artery occlusion 822429554 I65.23 for carotid doppler [id number] [facility]ancho Barrera, [facility] [address] [facility] [address] [place] [address] 07/31/2021 08:54:12 07/31/2021 10:01:21 Benign prostatic hyperplasia with outflow obstruction 449512868 N40.1 Prostate exam is benign. He does have some lower urinary symptoms. We discussed medical therapy for this. He states he will consider this and notify me if he decides to move forward with medical therapy. I will otherwise see him back in 1 year for PSA and a prostate exam Cyst of kidney 006545650 N28.1 Renal cyst is generally stable. This should be monitored annually. [id number] DO [facility] [address] [facility] [address] [place] [address] 07/30/2022 08:20:10 07/30/2022 09:17:33 Cyst of kidney 956412454 N28.1 His renal cyst remained stable over time. He should be monitored annually Benign pro static hyperplasia with outflow obstruction 142034486 N40.1 Prostate exam is benign. He does have some lower urinary symptoms. We discussed medical therapy for this. He states he will consider this and notify me if he decides to move forward with medical therapy. I will otherwise see him back in 1 year for PSA and a prostate exam.We also discussed minimally invasive interventi ons which can be used in place of medical therapy. He was given informatio n on [employer]ro[employer]ift Induration penis plastica 1158544 N48.6 This has been an unaddresse d issue for him. He states that he is accommodat ing the problem and it is not a priority to him at this time. We will therefore intervene at his request [id number] Sincere William MD [facility] [address] [place] [address] [place] [address] 10/31/2021 09:27:45 10/31/2021 14:17:30 Atrial fibrillation 66245752 I48.91 Remains in A. fib with well-contr olled rates. His fatigue improved with discontinu ation of sotalol but still has shortness of breath and dyspnea on exertion. Rates are well controlled . Continue current dose diltiazem. Continue warfarin. Benign ess ential hypertension 6515677 I10 Blood pressure stable. Continue diltiazem Blood in urine 56028285 R31.9 No further recurrence of hematuria. Continue Coumadin. If bleeding recurs consider left atrial appendage occlusion. [id number] Owen Olivo MD [facility] [address] [place] [address] 01/16/2022 09:03:55 01/16/2022 11:30:01 Varicose veins of lower extremity 92862245 I83.91 Venous varices 518603211 I83.93 [id number] Buck Sinclair MD [facility] [address] [place] [address] 12/29/2021 13:21:11 12/29/2021 14:18:20 Atrial fibrillation 79077397 I48.91 on sotalol and Warfarin Benign ess ential hypertension 6993707 I10 on diltiazem Coronary arteriosclerosis 03109757 I25.10 On Crestor Hyperlipidemia 67770493 E78.5 Crestor Mitral kelton ve regurgitation 40396481 I34.0 for 2 D echo Obesity 456053144 E66.9 loose weight [id number] Owen Olivo MD [facility] [address] [place] [address] 01/16/2022 09:02:51 01/16/2022 09:51:41 Pain due to varicose veins of lower extremity 569591237 I83.819 Patient with bilateral lower extremity varicose veins at this point he has no pain or discomfort he did have a closure done on the right and he does reflux on the left but does not wish to undergo closure on the left at this time plan to see him back in a year with repeat venous Doppler [id number] MD Adilson PaulZZCONCEPCIÓN_W [facility] [address] [address] 05/03/2022 09:09:41 05/03/2022 14:49:12 Atrial fibrillation 21145268 I48.91 Remains in A. fib with well-contr olled rates. Rates are well controlled . Continue current dose diltiazem. Continue warfarin. Benign ess ential hypertension 0910421 I10 Blood pressure stable. Continue diltiazem Blood in urine 69058902 R31.9 No further recurrence of hematuria. Continue Coumadin. If bleeding recurs consider left atrial appendage occlusion. [id number] Buck Sinclair MD ZZZPRAVEEND_6 [facility] [address] [facility], [address] [place] [address] 07/03/2022 13:10:02 07/03/2022 13:37:38 Atrial fibrillation 47989689 I48.91 on sotalol and Warfarin Benign ess ential hypertension 0421788 I10 on diltiazem Coronary arteriosclerosis 12939517 I25.10 On Crestor Hyperlipidemia 95121433 E78.5 Crestor Mitral kelton ve regurgitation 52497897 I34.0 for 2 D echo Bilateral carotid artery occlusion 562183971 I65.23 for carotid doppler [id number] Pancho Barrera DO [facility] [address] [facility] [address] [place] [address] 07/29/2023 08:02:04 07/29/2023 08:44:18 Benign prostatic hyperplasia with outflow obstruction 616804412 N40.1 He has chronic lower urinary symptoms but he does not want to pursue treatment at this time. He if he changes his mind, he will contact me Cyst of kidney 126115103 N28.1 His renal cyst remained stable over time. He should be monitored annually [id number] MD Adilson PaulZZPRAVEEND_W [facility] [address] [place] [address] [place] [address] 11/06/2022 09:50:00 11/06/2022 10:15:54 Atrial fibrillation 92626604 I48.91 Remains in A. fib with well-contr olled rates. Rates are well controlled . Continue current dose diltiazem. Continue warfarin. Benign ess ential hypertension 4952296 I10 Blood pressure stable. Continue diltiazem Blood in urine 01260901 R31.9 No further recurrence of hematuria. Continue Coumadin. If bleeding recurs consider left atrial appendage occlusion. [id number] MD ALIVIA Lyons_6 [facility] [address] [place] [address] 01/08/2023 12:54:25 01/08/2023 13:43:46 Atrial fibrillation 95045466 I48.91 on sotalol and Warfarin Coronary arteriosclerosis 01995820 I25.10 On Crestor Benign ess ential hypertension 7822901 I10 on diltiazem Hyperlipidemia 61494994 E78.5 Crestor Mitral kelton ve regurgitation 00708943 I34.0 for 2 D echo [id number] Kenyon Browne MD [facility] [address] [place] [address] 02/12/2023 13:46:56 02/12/2023 15:20:07 [id number] Kenyon Browne MD [facility] [address] [place] [address] 02/12/2023 13:47:43 02/12/2023 15:31:48 Varicose veins of lower extremity 55901012 I83.90 Undoubtedl y his lower extremity varicose vein disease is quite severe and extensive and should be treated further as he reports significan t bouts of cellulitis involving the right lower extremity that is required oral antibiotic s off and on over the last several years. Recommend continuing the mupirocin cream as on examinatio n today there does not appear to be any type of significan t erythema or ulceration and he will continue with his compressio n therapy on that right and left side. I think he would benefit from a vein closure of the left great saphenous vein to curtail some of his symptoms as well as stab phlebectom ies of his distended varicositi es which are contributi ng to his swelling. Additional ly I think he will require stab phlebectom ies of his right lower extremity to curtail the swelling which is likely contributi ng to his progressiv e bouts of cellulitis .. We will coordinate the vein closure to be performed first in the next few weeks Atrial fibrillation 4943 6004 I48.91 Plan to continue his Coumadin anticoagul ation and we will not have to hold it for the vein closure procedure that will be coordinate d to be performed the left side Hyperlipidemia 27925184 E78.5 He is on rosuvastat in 5 mg daily but I do not see a lipid panel within the last year and we will certainly coordinate for him to get one in the near future. [id number] Sincere William MD [facility] [address] [address] 05/16/2023 10:24:27 05/16/2023 10:42:26 Atrial fibrillation 86472073 I48.91 Remains in A. fib with well-contr olled rates. Rates are well controlled . Continue current dose diltiazem. Continue warfarin. Benign ess ential hypertension 1440186 I10 Blood pressure stable. Continue diltiazem Blood in urine 67722018 R31.9 No further recurrence of hematuria. Continue Coumadin. If bleeding recurs consider left atrial appendage occlusion. [id number] Kenyon Browne MD N_[facility] [address] [place] [address] 06/11/2023 08:02:33 06/11/2023 09:32:20 Varicose veins of lower limb co-occurrent with edema 481618238 I83.899 I did offer him varicose vein surgery including a high ligation and removal of all of these troublesom e varicositi es that likely harbor significan t reflux disease however he would like to hold off and see if he can get better with conservati ve management including the compressio n pumps that we discussed. He should follow-up in 3 months for further evaluation and Lymphedema 914384422 I89 .0 I believe he likely has secondary lymphedema from longstandi ng venous insufficie ncy and despite using compressio n stockings diligently for years he continues with swelling and has recurrent bouts of cellulitis . I think is an excellent candidate for bilateral lower extremity lymphedema pumps which will help to curtail the swelling and hopefully keep him off of antibiotic s and hospital course [id number] Kenyon Browne MD [facility] [address] [place] [address] 06/11/2023 08:04:11 06/11/2023 09:26:16 Peripheral vascular disease 716882953 I73.9 [id number] Buck Sinclair MD CPN_[address] [place] [address] [place] [address] 07/12/2023 12:53:42 07/12/2023 14:11:06 Coronary arteriosclerosis 60538763 I25.10 on rosuvastat in Atrial fibrillation 4943 6004 I48.91 on Eliquis Benign ess ential hypertension 7432452 I10 on lisinopril Hyperlipidemia 81673386 E78.5 on rosuvastat in Mitral kelton ve regurgitation 22867815 I34.0 for 2 d echo Bilateral stenosis of carotid arteries 526128171 I65.23 [id number] MD JANEE Paul[facility] [address] [facility] [address] [place] [address] 11/14/2023 09:59:40 11/14/2023 10:32:10 Atrial fibrillation 19131983 I48.91 Remains in A. fib with well-contr olled rates. Rates are well controlled . Continue current dose diltiazem. Continue warfarin. Benign ess ential hypertension 7467748 I10 Blood pressure stable. Continue diltiazem and lisinopril Blood in urine 14509333 R31.9 No further recurrence of hematuria. Continue Coumadin. If bleeding recurs consider left atrial appendage occlusion. [id number] Buck Sinclair MD [facility] [address] [facility], [address] [place] [address] 02/03/2024 12:26:23 02/03/2024 13:17:11 Atrial fibrillation 17467746 I48.91 on Warfarin, INR 2-3 Coronary arteriosclerosis 64488647 I25.10 on rosuvastat in Hypertensive disorder 38 338883 I10 on cardizem Mitral kelton ve regurgitation 36309055 I34.0 for 2 d echo [id number] MD JANEE Paul[facility] [address] [place] [address] [place] [address] 05/18/2024 12:08:42 05/18/2024 12:36:01 Atrial fibrillation 11967550 I48.91 Remains in A. fib with well-contr olled rates. Rates are well controlled . Continue current dose diltiazem. Continue warfarin. Benign ess ential hypertension 0446671 I10 Blood pressure stable. Continue diltiazem and lisinopril Blood in urine 43395554 R31.9 No further recurrence of hematuria. Continue Coumadin. If bleeding recurs consider left atrial appendage occlusion. Health Concerns Section Related Observation LastModified by Organization Detai ls LastModified Time None Recorded Concern Status LastModified by Organization Details LastModified Time None Recorded Advance Directives Directive N: Payers Encounter Date Sequence Insurance Name Policy Number Policy Mckenna Covered Member ID Mckenna Member ID Guarantor Name 07/12/2023 1 [place]) Miriam Strickland [id number] Miriam Strickland 07/12/2023 2 [place] [facility] [place] [facility] (MEDICAID HMO) Miriam Strickland [id number] Miriam Strickland 07/29/2023 1 [place] Miriam Strickland [id number] Miriam Strickland 07/29/2023 2 [place] [facility] [place] [facility] (MEDICAID O) Miriam Strickland [id number] Miriam Strickland 11/14/2023 1 [place] Miriam Strickland [id number] Miriam Strickland 11/14/2023 2 [place] [facility] [place] [facility] (MEDICAID HMO) Miriam Strickland [id number] Miriam Strickland 02/03/2024 1 [place] Miriam Strickland [id number] Miriam Strickland 02/03/2024 2 [place] [facility] [place] [facility] [place] [facility] (MEDICAID O) Miriam Strickland [id number] Miriam Strickland 05/18/2024 1 [place] Miriam Strickland [id number] Miriam Strickland 05/18/2024 2 [place] OFFICE OF MEDICAL ASSISTANCE PROGRAMS [place] Miriam Strickland [id number] Miriam Strickland Notes Date Note Type Note Provider Name and Address Organization Details Recorded Time 07/12/2023 text/html Patient presents for follow up for A.fib, CAD.Cardiac cath shows CAD. Carotid disease, Mitral regurge, Hyperlipidemia remains stable, Hypertension remains stable, No chest pain. No palpitation. Has some SOB with exertion. Associated with fatigue, lasts couple of mins, Abates upon rest, 2 out of 10 in intensity for the last couple of weeks. Buck Sinclair MD [address] [place], [address], [facility] 07/12/2023 14:07:22 07/29/2023 text/html 63-year-old male here for follow-up. History of BPH and renal cyst. He has some moderate lower urinary symptoms but he is not yet interested in pursuing medical therapy as he is dealing with other medical problems. Renal ultrasound shows a small left renal cyst which is benign and his PSA is 0.4 Pancho Barrera, DO [address], [place], [address], [facility] 07/29/2023 08:47:03 11/14/2023 text/html Since I last saw Miriam has been stable from a cardiovascular arrhythmia standpoint. Sincere William MD [address] [place], [address], [facility] 11/14/2023 10:26:09 02/03/2024 text/html Patient presents for follow up for A.fib, CAD.Cardiac cath shows CAD. Carotid disease, Mitral regurge, Hyperlipidemia remains stable, Hypertension remains stable, No chest pain. No palpitation. Has no sig. SOB with exertion. Buck Sinclair MD [address] [place], [address], [facility] 02/03/2024 13:14:58 05/18/2024 text/html Since I last saw Miriam has been stable from a cardiovascular arrhythmia standpoint. Sincere William MD [address] [place], [address], [facility] 05/18/2024 12:35:10
== END 2024-07-21 15:38 | disposition home or self-care (01) ==
LOC: HO.HKAS 14:32
PROVIDERS: Visit Provider Internal Medicine Nephrology
DX: I12.9 Hypertensive chronic kidney disease with stage 1 through stage 4 chronic kidney disease, or unspecified chronic kidney disease (principal); N02.B9 Other recurrent and persistent immunoglobulin A nephropathy; N18.2 Chronic kidney disease, stage 2 (mild); N28.1 Cyst of kidney, acquired
CPT/HCPCS: 99204

== ENCOUNTER 2024-08-28 09:37 | Outpatient (REF) | payer MEDICARE, MEDICAID, SELFPAY ==
--- NOTE | ~2024-08-28 | US_ITS ---
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 Multiple sales representative rural power static images were saved for review. Findings: Aorta: Normal waveform, 89.0 cm/s. Right kidney: Normal size and echotexture, 11.3 cm length. Main renal artery peak systolic velocities: Proximal: 116.0 cm/s Mid: 83.0 cm/s Distal: 72.0 cm/s RAR: 1.3 Segmental/interlobar resistive indices: Upper pole: 0.63, midpole 0.58, lower pole 0.64 Right renal vein patent Left kidney: Normal size and echotexture, 11.6 cm length. Main renal artery peak systolic velocities: Proximal: 117.0 cm/s Mid: 114.0 cm/s Distal: 109.0 cm/s RAR: 1.3 Segmental/interlobar resistive indices: Upper pole 0.64, midpole 0.59, lower pole 0.58. Left renal vein patent. Impression: 1. Normal renal artery duplex This document has been electronically signed by: Raul Adam MD on 08/28/2024 15:44:14
--- NOTE | ~2024-08-28 | US_ITS ---
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 Multiple medical collections representative static images were saved for review. Findings: Aorta: Normal waveform, 89.0 cm/s. Right kidney: Normal size and echotexture, 11.3 cm length. Main renal artery peak systolic velocities: Proximal: 116.0 cm/s Mid: 83.0 cm/s Distal: 72.0 cm/s RAR: 1.3 Segmental/interlobar resistive indices: Upper pole: 0.63, midpole 0.58, lower pole 0.64 Right renal vein patent Left kidney: Normal size and echotexture, 11.6 cm length. Main renal artery peak systolic velocities: Proximal: 117.0 cm/s Mid: 114.0 cm/s Distal: 109.0 cm/s RAR: 1.3 Segmental/interlobar resistive indices: Upper pole 0.64, midpole 0.59, lower pole 0.58. Left renal vein patent. Impression: 1. Normal renal artery duplex This document has been electronically signed by: Raul Adam MD on 08/28/2024 15:44:14
--- OUTSIDE RECORDS SUMMARY | 2024-08-28 09:57 | XMS_ITS | Data Portability ---
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 Plan of Treatment Reminders Order Date Submit Date Provider Last Modified By Organization Details Last Modified Time Details Appointments Est Patient 15m 2024 09:15A M Sincere William MD Not available Not available Not available Lab PSA, serum or plasma 2022 024 [email or web address] [facility], [address] [facility], [place], [address], 07/25/2023 08:25:57 Referral None recorded. Procedures None recorded. Surgeries None recorded. Imaging electroca rdiogram 2024 025 [email or web address] [facility], [address], [address], [place], [address], 05/18/2024 12:34:41 electroca rdiogram 2023 024 [email or web address] [facility], [address], [address], [place], [address], 11/14/2023 10:25:11 US, renal 2023 025 [facility], [address] [place], [address], 08/25/2024 11:50:30 US, duplex, carotid artery 2023 024 [facility], [address] [place] [address], [address], 11/17/2023 14:12:54 US, echocardi ogram, transthor acic, complete, w/ color flow - In october 20232023 024 [facility], [address] [place] [address], [address], 11/17/2023 13:46:56 Medication Orders None recorded. Patient TargetsNo targets recorded. Patient Instructions Encounter Date Encounter Id Patient Instructions Last Modified By Organization Details Last Modified Time 07/12/2023 [id number] RTO in 6 months Not available 07/12/2023 14:07:02 02/03/2024 [id number] RTO in 6 months Not available 02/03/2024 13:14:43 Reason for Referral None Reported. Results Created Date Observation Date Name Description Value Unit Range Abnormal Flag Note LastModifiedBy Organization Detail LastModifiedTime 07/15/19 24 07/15/2023 PSATO T PSA total 0.48 NG/mL 0.01-4 .00 PSA total is a Chemi lumin escen t Immun oassa y manuf actur ed by Chad ann [employer] Value s obtai agueda with diffe rent metho ds/ma nufac turer s canno t be used inter santana easpencer . Perfo rmed at: [facility], [address] [place] [address] [place] [id number] , CLIA # [id number] , Medic al Direc tor: Manish Colón M.D. Not Available [facility] (Lab) [address] [place], [place] [address], [address], 07/15/2023 09:24:37 07/17/19 24 07/15/2023 , ariadna mejía [facility] Ammon Hernandez mark [facility] elmira Hennessy MIRIAM Rudd MRN:[id number] t: : 961 Sex Male : Locati o PAWBTP S RA2 n: Orderi ng Physic jesus: SKYLER BIGGS A DO Ultras ound ACCESS ION EXAM DATE/T [...] Signed by: TYRON HESS MD Signed (Elect alissa Signat ure): 2023 04:22 pm EDT Rad [facility] (Imaging) [address] [facility] [place], [address], 07/29/2023 08:35:44 11/14/19 24 elect uday venegas am No observ ation record ed. TERELL [facility] [address] [facility] [address], [place], [address], 11/14/2023 10:25:05 11/17/1911/13/2023 US, echoc ardio gram, trans thora cic, compl ete, w/ color flow [facility] Imagin [facility] [place] Pati TOBINNeeraj CK, MIRIAM MRN:[id number] t: : 961 Sex Male : Locati o PAWBFF RA6 n: Ordermat beth Physic jesus: BUCK SINCLAIR MD Non-In vasive Cardio logy ACCESS ION EXAM DATE/T STEFANO 601-24 -206-0 0017 024 09:44 EDT Reason For Exam Nonrhe umatic mitral (valve ) insuff icienc y Report Transt horaci c Echoca rdiogr aphy Report (TTE) Demogr aphics Patien t SORAIDA PITTMAN Date of Study 2023 Name MIRIAM Study Locati on: Common [facility] 0 Room Number Access ion # [id number] Referr lindsey Rose M.D. Physic jesus Schmid DO Date of 1960 Reuben Rose M.D. Physic jesus Age 63 year(s ) Sonogr apher COMPA HERNANDEZ RDCS Gender Male Interp reting WILL Rose M.D. [...] signed by WILL Rose M.D. (Kadi pretin traci physic jesus) on 2023 at 01:46 PM ------ ------ ------ ------ ------ ------ ------ ------ ------ ------ ---- Final Signed by: BUCK SINCLAIR MD Signed (Elect carlossaray Signat ure): 2023 01:46 pm EDT [facility] (Imaging) [address] [place] [address], [address], 11/18/2023 14:54:38 11/17/19 24 11/13/2023 US, anthony dill, david id arter y [facility] - Diagno stic Imagin g [place] MIRIAM Rudd MRN:[id number] t: : 961 Sex Male : Locati o PAWBFF RA6 n: Orderi kirit Physic jesus: BUCK SINCLAIR MD Ultras ound [...] that correl ate with residu al internal controls consultant al caroti d diamet er, in accord ance with [place] Sympto matic Caroti d Endart erecto my Trial (NASCE T)- based stenos is levels . RIGHT CAROTI D: Mild plaque s in the internal controls consultant al caroti d bulb. CCA: 86 cm/sec ond. ICA: 55 cm/sec ond. ECA: 88 cm/sec ond. ICA / CCA ratio: 0.6. LEFT CAROTI D: Mild plaque s in the internal controls consultant al caroti d bulb. CCA: 78cm/s econd. ICA: 62 cm/sec ond. ECA: 78 cm/sec ond. ICA / CCA ratio: 0.8. VERTEB RAL ARTERY : Antegr raya flow noted in both verteb ral arteri es. IMPRES RIKA: 1. Mild athero sclero tic plaque noted in both right internal controls consultant al and controlled area checker al caroti d artery with an estima frieda obstru ction of less than 50%. 2. Mild athero sclero tic plaque noted in both left internal controls consultant al and controlled area checker al caroti d artery with an estima frieda obstru ction of less than 50%. 3. Antegr raya flow is seen in both verteb ral arteri es. Final Signed by: BUCK SINCLAIR MD Signed (Elect alissa owen): 2023 02:11 pm EDT Rad Image Link [facility] (Imaging) [address] [facility] [place], [address], 11/18/2023 14:54:38 11/20/19 24 elect rocraymond diogr am No observ ation record ed. TERELL [facility]in[facility] [address] [address], [place], [address], 11/20/2023 09:19:32 05/18/19 25 elect rocraymond diogr am No observ ation record ed. [facility] [address] [facility] [address], [place], [address], 05/18/2024 12:34:40 05/20/19 25 elect uday venegas am No observ ation record ed. TERELL [facility] [address], [place], [address], 05/20/2024 15:07:43 Result Notes None recorded. Problems Name Problem SNOMED Code Status Onset Date Resolution Date Notes Provider Name and Address Organization Details Recorded Time Benign essential hypertensio n 6378666 Active 2011 Chroni c; Kellen Zhang , [employer] RESTAURANT MANAGER null, [place] [facility] 3 08:47:59 Anemia 700898001 Active 2011 Chroni c; Kellen Zhang , [employer]AURANT MANAGER null, [place] [facility] 3 08:48:00 Hyperlipide ladan 75859960 Active 2011 Chroni c; Kellen Zhang , [employer]AURANT MANAGER null, [place] [facility] 3 08:48:00 Venous varices 957849960 Active 2014 Kellen Zhang [employer]AURANT MANAGER null, [place] [facility] 3 08:47:59 Open wound of foot 098289038 Active 2014 Kellen Zhang [employer]AURANT MANAGER null, [place] [facility] 3 08:47:59 Coronary arterioscle rosis 62549487 Active 2014 Kellen Zhang [employer]AURANT MANAGER null, [place] [facility] 3 08:48:00 Disorder of carotid artery 725726166 Active 2015 Kellen Zhang [employer]AURANT MANAGER null, [place] [facility] 3 08:48:00 Ventricular premature beats 99166904 Active 2015 Kellen Zhang [employer]AURANT MANAGER null, [place] [facility] 3 08:47:59 Blood coagulation disorder 59442732 Active 2019 Kellen Zhang [employer]AURANT MANAGER null, [place] [facility] 3 08:48:00 Atrial fibrillatio n 16673116 Active 2017 Kellen Zhang [employer] RESTAURANT MANAGER null, [place] [facility] 3 08:48:00 Blood in urine 53188976 Active 2018 Kellen Zhang LPN null, [place] [facility] 3 08:48:00 Azotemia 196254757 Active 2018 Kellen Zhang LPN null, [place] [facility] 3 08:48:00 Feces contents abnormal 729687092 Active 2018 Kellen Zhang [employer] RESTAURANT MANAGER null, [place] [facility] 3 08:47:59 Methicillin resistant Staphylococ cus aureus infection 542817768 Active 2018 Kellen Zhang LPN null, [place] [facility] 3 08:47:59 Abscess of foot 008959723 Active 2018 Kellenmona Zhang LPN null, [place] - [facility] 3 08:48:00 Chronic renal impairment Active 2018 Kellen Zhang LPN null, [place] [facility] 3 08:47:59 Renal mass 045721059 Active 2018 Kellen Zhang [employer]FE [employer] RESTAURANT MANAGER null, [place] - [facility] 3 08:48:00 Osteoporosi s 43367756 Active 2018 Kellen Zhang LPN null, [place] - [facility] 3 08:48:00 Induration penis plastica 0144161 Active 2016 Kellen Zhang LPN null, [place] [facility] 3 08:47:59 Spasm 19347601 Active 2016 Kellen Zhang LPN null, [place] - [facility] 3 08:48:00 Disorder of joint of ankle and/or foot 875757676 Active 2017 Kellen Zhang LPN null, [place] - [facility] 3 08:48:00 Ulcer of foot 44469875 Active 2017 Kellen Zhang LPN null, [place] - [facility] 3 08:48:00 Hypothyroid ism 55268454 Active 2002 Kellen Zhang LPN null, [place] [facility] 3 08:48:00 Cyst of kidney 448188352 Active 2021 Kellen Zhang LPN null, [place] - [facility] 3 08:48:00 Benign prostatic hyperplasia with outflow obstruction 453291595 Active 2021 Kellen Zhang LPN null, [place] [facility] 3 08:47:59 Pain of joint of ankle 823087129 Active 2003 Kellen Zhang LPN null, [place] [facility] 3 08:47:59 Charcot's arthropathy 118922251 Active 2018 eKllen Zhang LPN null, [place] - [facility] 3 08:48:00 Hypertensiv e disorder 59688570 Active 2003 Kellen Zhang LPN null, [place] - [facility] 3 08:48:00 Disorder of the peripheral nervous system 19609315 Active 2002 Kellen Zhang LPN null, [place] - [facility] 3 08:48:00 Persistent atrial fibrillatio n 762507466 Completed 201803/31/2019 Kellen Zhang LPN null, [place] - [facility] 3 08:48:00 Acquired hallux malleus 14376828 Active 2005 Kellen Zhang LPN null, [place] - [facility] 3 08:48:00 Varicose veins of lower limb co-occurren t with edema 511767491 Active 2022 Kenyon Browne MD [address] [place], [address], [place] - [facility] 3 15:16:46 Varicose veins of lower extremity 04329908 Active 2022 Kenyon Browne MD [address] [place], [address], [place] - [facility] 3 15:18:10 Lymphedema 377462184 Active 2023 Kenyon Browne MD [address] [place], [address], [place] - [facility] 4 09:39:47 Mitral valve regurgitati on 51158713 Active 2023 Buck Sinclair MD [address] [place], [address], [place] - [facility] 4 14:05:39 Bilateral stenosis of carotid arteries 562087586 Active 2023 Buck Sinclair MD [address] [place], [address], [place] - [facility] 4 14:05:46 Notes:Some problems listed i n Document: #[id number] could not be added to this patient's chart. Please review this document and add these problems to the patient's chart manually as needed. Problem Notes None recorded. Procedures Surgical History Date Name Laterality Status Provider Name and Address Organization Details Recorded Time 07/29/19 IPSS completed Mimi Ruiz LPN [facility] 07/29/2023 08:30:27 06/11/19 24 Surgery Center - PVR completed Kenyon Browne MD [address] [place], [address], [place] - [facility] 06/11/2023 09:09:42 06/11/19 24 Surgery Center - Lower Extremities / Bypass Graft completed Briseida Valencia [facility] [place] - [facility] 06/11/2023 08:58:00 02/13/20 23 Surgery [facility] Lower Extremity Venous completed Briseida Valencia [facility] [place] - [facility] 02/12/2023 14:54:59 07/31/19 23 IPSS completed Meredith Millereras [place] - [facility] 07/30/2022 08:37:06 01/17/20 22 Surgery [facility] Lower Extremity Venous completed Owen Olivo MD [address] [place], [address], [place] - [facility] 01/16/2022 11:29:21 04/22/19 22 surgery of cataract of left eye completed Meredith Millereras [place] - [facility] 07/30/2022 08:42:54 01/03/20 21 Surgery [facility] PVR completed Owen Olivo MD [address] [place], [address], [facility] 01/03/2021 09:31:21 01/03/20 21 Surgery [facility] Lower Extremity Venous completed Andres Neville MD [address] [place], [address], [place] - [facility] 01/03/2021 12:53:06 stripping of vein completed Kellen Zhang [facility] 07/31/2021 09:39:51 excision of bunion completed Kellen Zhang [facility] [place] - [facility] 07/31/2021 09:41:44 kidney biopsy completed Kellen Zhang [facility] [place] - [facility] 07/31/2021 09:43:00 cardioversion completed Kellen Zhang [facility] [place] - [facility] 07/31/2021 09:44:15 Imaging Results Imaging Date Name Status LastModified by Organization Details LastModified Time 07/15/2023 US, kidney completed [address] (Imaging) [address] [place], [address], 07/29/2023 08:35:44 11/14/2023 electrocardiogram completed [facility] [address], [address], 11/14/2023 10:25:05 11/13/2023 US, echocardiogram, transthoracic, complete, w/ color flow completed [facility] (Imaging) [address] [place], [address], 11/18/2023 14:54:38 11/13/2023 US, duplex, carotid artery completed [facility] (Imaging) [address] [place], [address], 11/18/2023 14:54:38 11/20/2023 electrocardiogram completed [facility] [address], [address], 11/20/2023 09:19:32 05/18/2024 electrocardiogram completed [facility] [address], [address], 05/18/2024 12:34:40 05/20/2024 electrocardiogram completed [facility] [address], [address], 05/20/2024 15:07:43 Procedure Notes None recorded. Medical Equipment None Reported. Allergies Allergen ID Allergen Name Allergen Category Reaction Reaction Severity Criticality Documentation Date Start Date Code Code System Note Provider Name and Address Organization Details Recorded Time 423332 ethinyl estradiol / levonorge strel medicatio n Not available Not available Not available 01/16/2021 07462 8 RxNorm JOHN Craft [facility] - [facility] 09/27/202 1 14:43:13 Medications Name Sig Start Date Stop Date Status Note LastModified by Organization Details LastModified Time flucelvax quad (med b) 2020- (prefill) eaches VACCINE active Not Available Not Available Not Available covid -19 antigen test medicare eaches 11/06 completed Not Available Not Available Not [...] Available prednisol one acetate 1 % eye drops,marleny sahuon 11/06 completed Not Available Not Available Not [...] mg-100 mg tablets in a dose pack (Moderate Renal Dose) take 1 NIRMATRE LVIR tablet with 1 RITONAVI R tablet twice a day for 5 days 07/03 completed Not Available Not Available Not Available Vitals Date Recorded Body height Body mass index (BMI) Body weight Heart rate Systolic blood pressure Diastolic blood pressure Provider Name and Address Organization Details Last Updated DateTime 4 182.88 cm 36.5 kg/m2 142896. 35 g 82 /min 128 mm[Hg] 80 mm[Hg] Viviana Beckman [facility] 4 13:09:17 Date Recorded Body height Body mass index (BMI) Body weight Systolic blood pressure Diastolic blood pressure Provider Name and Address Organization Details Last Updated DateTime 07/29/2023 182.88 cm 36.5 kg/m2 866047.3 5 g 110 mm[Hg] 80 mm[Hg] Mimi Ruiz LPN [facility] 4 08:26:19 Date Recorded Body height Body mass index (BMI) Body weight Heart rate Oxygen saturation Oxygen saturation in Arterial blood by Pulse oximetry Systolic blood pressure Diastolic blood pressure Provider Name and Address Organization Details Last Updated DateTime 4 182.88 cm 35.1 kg/m2 823999. 42 g 89 /min 98 % 98 % 142 mm[Hg] 86 mm[Hg] Kaya Blanco MA [facility] 4 10:11:06 Date Recorded Body height Body mass index (BMI) Body weight Heart rate Systolic blood pressure Diastolic blood pressure Provider Name and Address Organization Details Last Updated DateTime 4 182.88 cm 34.6 kg/m2 309637. 05 g 84 /min 120 mm[Hg] 82 mm[Hg] Marilou Lees MA [facility] 4 12:41:22 Date Recorded Body height Body mass index (BMI) Body weight Heart rate Respiratory rate Oxygen saturation Oxygen saturation in Arterial blood by Pulse oximetry Provider Name and Address Organization Details Last Updated DateTime 5 182.88 cm 35.3 kg/m2 643460. 02 g 110 /min 16 /min 98 % 98 % Zita Vazquez MA [facility] 5 12:20:09 Date Recorded Systolic blood pressure Diastolic blood pressure Provider Name and Address Organization Details Last Updated DateTime 05/18/2024 148 mm[Hg] 84 mm[Hg] Sincere William MD [address] [place] [address], [address], [facility] 05/18/2024 12:28:06 Social History Question Answer Notes LastModified by Organizat ion Details LastModified Time Tobacco Smoking Status Former Smoker JOHN Reich, [facility] 07/14/2020 13:40:11 Do You Have An Advance Directive? No Information not available 05/03/2022 What Is Your Level Of Alcohol Consumption? None Information not available 07/31/2021 What Is Your Level Of Caffeine Consumption? Occasional Information not available 07/31/2021 Do You Or Have You Ever Used E-cigarettes Or Vape? Never Used Electronic Cigarettes Information not available 07/14/2020 When Did You Quit Smoking? 16+yearssincel [email or web address] [email or web address] Information not available 10/31/2021 Do You Have A Medical Power Of Advice Nurse? No Information not available 05/03/2022 What Was [...] Organization Details LastModified Time Mother Diabetes mellitus Not available 07/21 09:36:15 Medical History Condition Response Coronary Artery Disease Y Other N Atrial Fibrillation Y Colon Cancer N Kidney Stones N Enlarged Prostate N Hyperthyroidism N Cancer: Specify N Glaucoma N Lung Disease N COPD N Depression N Hypothyroidism Y Valve Disorder N Degenerative Joint Disease N TIA N Enterocolitis N Congestive Heart Failure N Obstructive Sleep Apnea N Seasonal Allergies N Anxiety Disorder N Respiratory Disorder N Arthritis N Diverticulosis N DVT/Pulmonary Embolism N GERD / heartburn N Crohn's Disease N Inflammatory Bowel Syndrome N Hypercholesterolemia N Liver Disease N Other Sleep Disorders N Rheumatoid Arthritis N Alcohol Abuse N Fibromyalgia N Headaches N Kidney Disease N Hiatal Hernia N Heart Problems Y Hospitalizations N Gallstones N Abdominal Aortic Aneurysm N Thyroid Problems N DVT N Avoidant/Restrictive Food Disorder N PTSD N PATIENT DENIES SIGNIFICANT PAST MEDICAL HISTORY N Constipation N Heart Attack (SD) N Neurological Problems N Diabetes N Rheumatic Fever N Bleeding Disorder N Seizures/Epilepsy N Chronic Bronchitis N Hyperlipidemia Y Back Problems N Chronic Pain N Diverticulitis N Dementia N Asthma N Substance Abuse N Stroke/CVA N Aneurysm N Hepatitis N Colon Polyp N Heart Disease Y Acute Respiratory Distress N Anemia/Blood Disorder Y Hypertension Y Osteoporosis N Immunizations Vaccine Type Date Status Note Provider Nam e and Address Organization Details Recorded Time influenza, unspecified formulation 12/14/2019 completed Kellen Iacobacci, [employer]URANT MANAGER null, [place] - [facility] 07/30/2022 08:48:00 Influenza, recombinant, quadrivalent, PF 01/21/2019 completed Kellen Iacobacci, [employer] RESTAURANT MANAGER null, [place] - [facility] 07/30/2022 08:48:00 Td(adult) unspecified formulation 05/16/2009 completed Kellen Iacobacci, [employer] RESTAURANT MANAGER null, [place] - [facility] 07/30/2022 08:48:00 SARS-COV-2 (COVID-19) vaccine, UNSPECIFIED 04/22/2020 completed Kellen Iacobacci, [employer] RESTAURANT MANAGER null, [place] - [facility] 07/30/2022 08:48:00 SARS-COV-2 (COVID-19) vaccine, UNSPECIFIED 05/23/2020 completed Kellen Iacobacci, [employer] RESTAURANT MANAGER null, [place] - [facility] - [facility] 07/30/2022 08:48:00 SARS-COV-2 (COVID-19) vaccine, UNSPECIFIED 02/16/2021 completed Kellen Iacobacci, [employer] OR RESTAURANT MANAGER null, [place] - [facility] 07/30/2022 08:48:00 COVID-19, mRNA, LNP-S, PF, 100 mcg/0.5mL dose or 50 mcg/0.25mL dose 05/14/2020 completed Kellen Iacobacci, [employer]AURANT MANAGER null, [place] - [facility] 07/30/2022 08:48:00 COVID-19, mRNA, LNP-S, PF, 100 mcg/0.5mL dose or 50 mcg/0.25mL dose 06/18/2020 completed Kellen Iacobacci, [employer] RESTAURANT MANAGER null, [place] - [facility] 07/30/2022 08:48:00 COVID-19, mRNA, LNP-S, PF, 100 mcg/0.5mL dose or 50 mcg/0.25mL dose 07/24/2021 completed Kellen Iacobacci, [employer] RESTAURANT MANAGER null, [place] - [facility] [facility] 07/30/2022 08:48:00 COVID-19, mRNA, LNP-S, PF, 100 mcg/0.5mL dose or 50 mcg/0.25mL dose 02/16/2021 completed Kellen Iacobacci, CAFE OR RESTAURANT MANAGER null, [place] - [facility] [place] [facility] 07/30/2022 08:48:00 Influenza, split virus, quadrivalent, PF 12/27/2020 completed Kellen Iacobacci, CAFE OR RESTAURANT MANAGER null, [place] - [facility] [place] [facility] 07/30/2022 08:48:00 Past Encounters Encounter ID Performer Location Encounter Start Date Encounter Closed Date Diagnosis/Indication Diagnosis SNOMED-CT Code Diagnosis ICD10 Code Diagnosis Note [id number] Buck Sinclair MD [facility] [address] [place] [address] 07/14/2020 13:34:25 07/14/2020 14:20:05 Atrial fibrillation 41272315 I48.91 on sotalol and Warfarin Coronary arteriosclerosis 63590213 I25.10 On Crestor Hyperlipidemia 66240073 E78.5 Crestor Benign ess ential hypertension 6892536 I10 on diltiazem Dyspnea 695504512 R06.00 Dyspnea on dressing and undressing 388766242 R06.02 [id number] Sincere iWlliam MD [facility]ARD_W [facility] EP [address] [address] 10/27/2020 11:07:48 10/27/2020 12:10:52 Atrial fibrillation 82432679 I48.91 Remains in A. fib with well-contr olled rates. Continue diltiazem sotalol and Coumadin. We are now getting to the point where restoratio n of sinus rhythm is probably going to be difficult to achieve. May consider discontinu ing sotalol in favor of metoprolol . Ablation window was also probably narrowing at this point. Benign ess ential hypertension 5115209 I10 Blood pressure stable. Continue diltiazem Blood in urine 52341868 R31.9 No further recurrence of hematuria. Continue Coumadin. If bleeding recurs consider left atrial appendage occlusion. [id number] Andres Neville MD [facility] [address] [place] [address] 01/02/2021 13:52:20 01/03/2021 15:03:57 Venous varices 672442967 I83.93 [id number] Owen Olivo MD [facility] [address] [place] [address] 01/02/2021 13:54:12 01/05/2021 09:46:47 Abscess of foot 078570178 L02.619 Disorder o f joint of ankle and/or foot 108360219 M12.872 Open wound of foot 41867 3008 S91.302D Ulcer of foot 14820783 L 97.521 Venous varices 509142596 I83.93 [id number] Owen Olivo MD [facility] [address] [place] [address] 01/16/2021 14:36:25 01/16/2021 15:02:05 Varicose veins of lower extremity 20477519 I83.91 Patient with asymptomat ic right lower extremity varicose veins plan to see him back in a year with a repeat venous Doppler otherwise I am going to set him up with a Farrow wrap for his right leg. [id number] MD ALIVIA Lyons_6 [facility] [address] [place] [address] 01/17/2021 14:54:49 01/17/2021 16:26:54 Atrial fibrillation 31542884 I48.91 on sotalol and Warfarin Benign ess ential hypertension 9659349 I10 on diltiazem Coronary arteriosclerosis 52574767 I25.10 On Crestor Hyperlipidemia 22927332 E78.5 Crestor Mitral kelton ve regurgitation 78963162 I34.0 for 2 D echo [id number] MD ALIVIA Paul_W [facility] EP 545 [facility] [address] [place] [address] 05/02/2021 09:20:55 05/02/2021 13:44:46 Atrial fibrillation 15320003 I48.91 Remains in A. fib with well-contr olled rates. Because of his fatigue and dyspnea on exertion will discontinu e sotalol and use diltiazem alone for rate control. Hopefully this will help improve some of his fatigue and shortness of breath. Benign ess ential hypertension 7642557 I10 Blood pressure stable. Continue diltiazem Blood in urine 00899830 R31.9 No further recurrence of hematuria. Continue Coumadin. If bleeding recurs consider left atrial appendage occlusion. [id number] MD ALIVIA Lyons_6 [facility] [address] [facility], [address] [place] [address] 06/26/2021 12:40:03 06/26/2021 13:40:38 Atrial fibrillation 75020161 I48.91 on sotalol and Warfarin Benign ess ential hypertension 2098569 I10 on diltiazem Coronary arteriosclerosis 03930885 I25.10 On Crestor Hyperlipidemia 96466979 E78.5 Crestor Bilateral carotid artery occlusion 524945072 I65.23 for carotid doppler [id number] Pancho Barrera, PHA_[facility] [address] [place] [address] [address] [place] [address] 07/31/2021 08:54:12 07/31/2021 10:01:21 Benign prostatic hyperplasia with outflow obstruction 552540907 N40.1 Prostate exam is benign. He does have some lower urinary symptoms. We discussed medical therapy for this. He states he will consider this and notify me if he decides to move forward with medical therapy. I will otherwise see him back in 1 year for PSA and a prostate exam Cyst of kidney 515579968 N28.1 Renal cyst is generally stable. This should be monitored annually. [id number] Pancho Barrera DO [facility] [address] [facility] [address] [place] [address] 07/30/2022 08:20:10 07/30/2022 09:17:33 Cyst of kidney 691958543 N28.1 His renal cyst remained stable over time. He should be monitored annually Benign pro static hyperplasia with outflow obstruction 529426810 N40.1 Prostate exam is benign. 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 He states that he is accommodat ing the problem and it is not a priority to him at this time. We will therefore intervene at his request [id number] Sincere William MD [facility] [address] [place] [address] [place] [address] 10/31/2021 09:27:45 10/31/2021 14:17:30 Atrial fibrillation 75071995 I48.91 Remains in A. fib with well-contr olled rates. His fatigue improved with discontinu ation of sotalol but still has shortness of breath and dyspnea on exertion. Rates are well controlled . Continue current dose diltiazem. Continue warfarin. Benign ess ential hypertension 5776508 I10 Blood pressure stable. Continue diltiazem Blood in urine 99168317 R31.9 No further recurrence of hematuria. Continue Coumadin. If bleeding recurs consider left atrial appendage occlusion. [id number] Owen Olivo MD [facility] [address] [place] [address] 01/16/2022 09:03:55 01/16/2022 11:30:01 Varicose veins of lower extremity 13482262 I83.91 Venous varices 912652524 I83.93 [id number] Buck Sinclair MD [facility] [address] [place] [address] 12/29/2021 13:21:11 12/29/2021 14:18:20 Atrial fibrillation 09582817 I48.91 on sotalol and Warfarin Benign ess ential hypertension 9236632 I10 on diltiazem Coronary arteriosclerosis 75734280 I25.10 On Crestor Hyperlipidemia 43178768 E78.5 Crestor Mitral kelton ve regurgitation 97287518 I34.0 for 2 D echo Obesity 470466937 E66.9 loose weight [id number] Owen Olivo MD [facility] [address] [place] [address] 01/16/2022 09:02:51 01/16/2022 09:51:41 Pain due to varicose veins of lower extremity 146582965 I83.819 Patient with bilateral lower extremity varicose veins at this point he has no pain or discomfort he did have a closure done on the right and he does reflux on the left but does not wish to undergo closure on the left at this time plan to see him back in a year with repeat venous Doppler [id number] Sincere William MD [facility]_W [facility] EP [address] [address] 05/03/2022 09:09:41 05/03/2022 14:49:12 Atrial fibrillation 34649973 I48.91 Remains in A. fib with well-contr olled rates. Rates are well controlled . Continue current dose diltiazem. Continue warfarin. Benign ess ential hypertension 0105533 I10 Blood pressure stable. Continue diltiazem Blood in urine 37267527 R31.9 No further recurrence of hematuria. Continue Coumadin. If bleeding recurs consider left atrial appendage occlusion. [id number] Buck Sinclair MD ZZZPRAVEEND_6 [facility] [address] [place] [address] 07/03/2022 13:10:02 07/03/2022 13:37:38 Atrial fibrillation 58305849 I48.91 on sotalol and Warfarin Benign ess ential hypertension 9576722 I10 on diltiazem Coronary arteriosclerosis 33726888 I25.10 On Crestor Hyperlipidemia 94534133 E78.5 Crestor Mitral kelton ve regurgitation 80601508 I34.0 for 2 D echo Bilateral carotid artery occlusion 297230585 I65.23 for carotid doppler [id number] Pancho Barrera DO [facility] [address] [place] [address] [address] [place] [address] 07/29/2023 08:02:04 07/29/2023 08:44:18 Benign prostatic hyperplasia with outflow obstruction 267903865 N40.1 He has chronic lower urinary symptoms but he does not want to pursue treatment at this time. He if he changes his mind, he will contact me Cyst of kidney 281576259 N28.1 His renal cyst remained stable over time. He should be monitored annually [id number] Sincere William MD [facility]CARD_W [facility] [address] [address] 11/06/2022 09:50:00 11/06/2022 10:15:54 Atrial fibrillation 78231739 I48.91 Remains in A. fib with well-contr olled rates. Rates are well controlled . Continue current dose diltiazem. Continue warfarin. Benign ess ential hypertension 1404721 I10 Blood pressure stable. Continue diltiazem Blood in urine 90880498 R31.9 No further recurrence of hematuria. Continue Coumadin. If bleeding recurs consider left atrial appendage occlusion. [id number] Buck Sinclair MD ZZZPRAVEEND_6 [facility] [address] [place] [address] 01/08/2023 12:54:25 01/08/2023 13:43:46 Atrial fibrillation 87649434 I48.91 on sotalol and Warfarin Coronary arteriosclerosis 78517835 I25.10 On Crestor Benign ess ential hypertension 0618283 I10 on diltiazem Hyperlipidemia 79614545 E78.5 Crestor Mitral kelton ve regurgitation 44831068 I34.0 for 2 D echo [id number] Kenyon Browne MD [facility] [address] [place] [address] 02/12/2023 13:46:56 02/12/2023 15:20:07 [id number] Kenyon Browne MD N[facility] [address] [place] [address] 02/12/2023 13:47:43 02/12/2023 15:31:48 Varicose veins of lower extremity 18817206 I83.90 Undoubtedl y his lower extremity varicose [...] to be performed the left side Hyperlipidemia 34815051 E78.5 He is on rosuvastat in 5 mg daily but I do not see a lipid panel within the last year and we will certainly coordinate for him to get one in the near future. [id number] Sincere William MD [facility] [address] [place] [address] 05/16/2023 10:24:27 05/16/2023 10:42:26 Atrial fibrillation 03512000 I48.91 Remains in A. fib with well-contr olled rates. Rates are well controlled . Continue current dose diltiazem. Continue warfarin. Benign ess ential hypertension 0988208 I10 Blood pressure stable. Continue diltiazem Blood in urine 93745170 R31.9 No further recurrence of hematuria. Continue Coumadin. If bleeding recurs consider left atrial appendage occlusion. [id number] Kenyon Browne MD N_[facility] [address] [place] [address] 06/11/2023 08:02:33 06/11/2023 09:32:20 Varicose veins of lower limb co-occurrent with edema 579054479 I83.899 I did offer him varicose vein [...] 3 months for further evaluation and Lymphedema 291717075 I89 .0 I believe he likely has [...] off of antibiotic s and hospital course [id number] Kenyon Browne MD N_[facility] [address] [place] [address] 06/11/2023 08:04:11 06/11/2023 09:26:16 Peripheral vascular disease 407268181 I73.9 [id number] Buck Sinclair MD CPN_[facility] [address] [place] [address] 07/12/2023 12:53:42 07/12/2023 14:11:06 Coronary arteriosclerosis 82216026 I25.10 on rosuvastat in Atrial fibrillation 4943 6004 I48.91 on Eliquis Benign ess ential hypertension 8573992 I10 on lisinopril Hyperlipidemia 86308094 E78.5 on rosuvastat in Mitral kelton ve regurgitation 60655881 I34.0 for 2 d echo Bilateral stenosis of carotid arteries 098775542 I65.23 [id number] Sincere William MD [facility] [address] [place] [address] 11/14/2023 09:59:40 11/14/2023 10:32:10 Atrial fibrillation 36852933 I48.91 Remains in A. fib with well-contr olled rates. Rates are well controlled . Continue current dose diltiazem. Continue warfarin. Benign ess ential hypertension 9681497 I10 Blood pressure stable. Continue diltiazem and lisinopril Blood in urine 35136412 R31.9 No further recurrence of hematuria. Continue Coumadin. If bleeding recurs consider left atrial appendage occlusion. [id number] Buck Sinclair MD CPN_[facility] [address] [place] [address] 02/03/2024 12:26:23 02/03/2024 13:17:11 Atrial fibrillation 14961098 I48.91 on Warfarin, INR 2-3 Coronary arteriosclerosis 47760183 I25.10 on rosuvastat in Hypertensive disorder 38 455704 I10 on cardizem Mitral kelton ve regurgitation 05698706 I34.0 for 2 d echo [id number] MD JANEE Paul_[facility] [address] [facility] [address] [place] [address] 05/18/2024 12:08:42 05/18/2024 12:36:01 Atrial fibrillation 99416695 I48.91 Remains in A. fib with well-contr olled rates. Rates are well controlled . Continue current dose diltiazem. Continue warfarin. Benign ess ential hypertension 9507270 I10 Blood pressure stable. Continue diltiazem and lisinopril Blood in urine 46151948 R31.9 No further recurrence of hematuria. Continue Coumadin. If bleeding recurs consider left atrial appendage occlusion. Health Concerns Section Related Observation LastModified by Organization Detai ls LastModified Time None Recorded Concern Status LastModified by Organization Details LastModified Time None Recorded Advance Directives Directive N: Payers Insurance Date Sequence Insurance Name Policy Number Policy Mckenna Covered Member ID Mckenna Member ID Guarantor Name 05/28/2024 2 [place] OFFICE OF MEDICAL ASSISTANCE PROGRAMS [place] Miriam Strickland [id number] Miriam Strickland 02/24/2020 1 *SELF PAY* Fr naomie Strickland 12/07/2022 1 [employer] HEALTH PLAN FAMILY (MEDICAID HMO) [id number] Miriam Strickland [id number] Miriam Strickland 05/11/2024 1 [place] Miriam Strickland [id number] Miriam Strickland 07/29/2023 2 [place] OFFICE [place]ICAL [place]IST[place]AMS [place] Miriam Strickland [id number] Miriam Strickland 02/26/2024 2 [employer] [facility] [place] [facility] CHO[facility] (MEDICAID HMO) Miriam Strickland [id number] Miriam Strickland Notes Date Note Type Note [...] last couple of weeks. Buck Sinclair MD [address] [place] [address], [place], [address], [facility] 07/12/2023 14:07:22 07/29/2023 text/html 63-year-old male here for follow-up. History of BPH and renal cyst. He has some moderate lower urinary symptoms but he is not yet interested in pursuing medical therapy as he is dealing with other medical problems. Renal ultrasound shows a small left renal cyst which is benign and his PSA is 0.4 Pancho Barrera, DO [address], [place], [address], [facility] 07/29/2023 08:47:03 11/14/2023 text/html Since I last saw Miriam has been stable from a cardiovascular arrhythmia standpoint. Sincere William MD [address] [place], [address], [facility] 11/14/2023 10:26:09 02/03/2024 text/html Patient presents for follow up for A.fib, CAD.Cardiac cath shows CAD. Carotid disease, Mitral regurge, Hyperlipidemia remains stable, Hypertension remains stable, No chest pain. No palpitation. Has no sig. SOB with exertion. Buck Sinclair MD [address] [place], [address], [facility] 02/03/2024 13:14:58 05/18/2024 text/html Since I last saw Miriam has been stable from a cardiovascular arrhythmia standpoint. Sincere William MD [address] [place], [address], [facility] 05/18/2024 12:35:10
== END 2024-08-28 09:38 | disposition home or self-care (01) ==
LOC: HO.US 09:37
PROVIDERS: PCP Nurse Practitioner Family; Visit Provider Internal Medicine Nephrology
DX: N02.B9 Other recurrent and persistent immunoglobulin A nephropathy (principal); I10 Essential (primary) hypertension
CPT/HCPCS: 76775; 93975

== ENCOUNTER → 2024-08-28 09:38 | Outpatient (BNV) | payer MEDICARE, MEDICAID, SELFPAY | PROVIDERS: PCP Nurse Practitioner Family; Visit Provider Radiology Diagnostic Radiology | DX: I10 Essential (primary) hypertension (principal); N02.B9 Other recurrent and persistent immunoglobulin A nephropathy | CPT/HCPCS: 76775; 93975 ==

== ENCOUNTER 2024-10-27 10:10 | Outpatient (AMB) | payer MEDICARE, MEDICAID, SELFPAY ==
--- OUTSIDE RECORDS SUMMARY | 2024-10-27 10:57 | XMS_ITS | Data Portability ---
Author Organization [facility] - [facility] [employer] [facility], CPN_[facility] Urology Address [address] [facility] [address] [place] [address] Care Team Providers Care Cage Clerk Name Role Phone BUCK SINCLAIR Roll Edge Stitcher Hand NANO MAY Primary Care Provider [phone] PANCHO BARRERA Urologist SINCERE WILLIAM Clinical Cardiac Electrophysiolo gist Assessment No assessment recorded. Plan of Treatment Reminders Order Date Submit Date Provider Last Modified By Organization Details Last Modified Time Details Appointments Est Patient 15m 2024 09:15A M Sincere William MD Not available Not available Not available Lab PSA, serum or plasma 2022 024 [email or web address] 21 [facility], [address], [place], [address], 07/25/2023 08:25:57 Referral None recorded. Procedures None recorded. Surgeries None recorded. Imaging electroca rdiogram 2024 025 [email or web address] [facility], [address] [facility] [address], [place], [address], 05/18/2024 12:34:41 electroca rdiogram 2023 024 [email or web address] [facility], [address], [place], [address], 11/14/2023 10:25:11 US, renal 2023 025 [email or web address] [facility] Registration, [address] [place], [address], 08/31/2024 13:37:27 US, duplex, carotid artery 2023 024 [facility], [address] [place] [address], [address], 11/17/2023 14:12:54 US, echocardi ogram, transthor acic, complete, w/ color flow - In october 20232023 024 [facility], [address] [place] [address], [address], 11/17/2023 13:46:56 Medication Orders None recorded. Patient TargetsNo targets recorded. Patient Instructions Encounter Date Encounter Id Patient Instructions Last Modified By Organization Details Last Modified Time 07/12/2023 [id number] RTO in 6 months Not available 07/12/2023 14:07:02 02/03/2024 [id number] RTO in 6 months Not available 02/03/2024 13:14:43 Reason for Referral None Reported. Results Created Date Observation Date Name Description Value Unit Range Abnormal Flag Note LastModifiedBy Organization Detail LastModifiedTime 07/15/19 24 07/15/2023 PSATO T PSA total 0.48 NG/mL 0.01-4 .00 PSA total is a Chemi lumin escen t Immun oassa y manuf actur ed by Blaine marissa [employer] Value s obtai agueda with diffe rent janeeno ds/juan pablo nuscarlettc turer s canno t be used inter santana easpencer . Perfo rmed at: [facility], [address] [place] [address] [place] [address] , CLIA # [id number] , Medic al Direc tor: Manish Colón M.D. Not Available [facility] (Lab) [address] [facility] [place], [address], 07/15/2023 09:24:37 07/17/19 24 07/15/2023 , ariadna mejía [facility] Hennessy MIRIAM Rudd MRN:[id number] t: [...] 04:22 pm EDT Rad Image Link [email or web address] [facility] (Imaging) [address] [facility] [address], 07/29/2023 08:35:44 11/14/19 24 elect uday venegas am No observ ation record ed. TERELL [facility] [address] [facility] [address], [place], [address], 11/14/2023 10:25:05 11/17/19 24 11/13/2023 US, echoc ardio gram, trans thora cic, compl ete, w/ color flow [facility] - Diagno stic Imagin [facility] Pati SORAIDA CKI, MIRIAM MRN:[id number] t: : 961 Sex Male : Locati o PAWBFF RA6 n: Ordermat beth Physic jesus: BUCK SINCLAIR MD Non-In vasive Cardio logy ACCESS ION EXAM DATE/T STEFANO 601-24 -206-0 0017 024 09:44 EDT Reason For Exam Nonrhe umatic mitral (valve ) insuff icienc y Report Transt horaci c Echoca rdiogr aphy Report (TTE) Demogr aphics Pativilma t SORAIDA PITTMAN Date of Study 2023 Name MIRIAM Study Locati on: [facility] Diagno stic [facility] 0 Room Number Access ion # [id number] Referr lindsey Rose M.D. Physic jesus Schmid DO Date of 1960 Reuben Rose M.D. 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 [...] ly signed by WILL Rose M.D. (Kadi lee) on 2023 at 01:46 PM ------ [...] ly signed by WILL Rose M.D. (Kadi pretjosé g physic jesus) on 2023 at 01:46 PM ------ ------ ------ ------ ------ ------ ------ ------ ------ ------ ---- Final Signed by: BUCK SINCLAIR MD Signed (Elect alissa Signat ure): 2023 01:46 pm EDT [facility] (Imaging) [address] [place], [address], 11/18/2023 14:54:38 11/17/19 24 11/13/2023 US, anthony idll, david id arter y [facility] Hospit al - Diagno stic Imagin g [place] MIRIAM Rudd [id number] t: : 89 [...] ters that correl ate with residu al advertising internship al caroti d diamet er, in accord ance with [place] an Sympto matic Caroti d Endart erecto my Trial (NASCE T)- based stenos is levels . RIGHT CAROTI D: Mild plaque s in the advertising internship al caroti d bulb. CCA: 86 cm/sec ond. ICA: 55 cm/sec ond. ECA: 88 cm/sec ond. ICA / CCA ratio: 0.6. LEFT CAROTI D: Mild plaque s in the advertising internship al caroti d bulb. CCA: 78cm/s econd. ICA: 62 cm/sec ond. ECA: 78 cm/sec ond. ICA / CCA ratio: 0.8. VERTEB RAL ARTERY : Antegr raya flow noted in both verteb ral arteri es. IMPRES RIKA: 1. Mild athero sclero tic plaque noted in both right advertising internship al and transportation security screener al caroti d artery with an estima frieda obstru ction of less than 50%. 2. Mild athero sclero tic plaque noted in both left advertising internship al and transportation security screener al caroti d artery with an estima frieda obstru ction of less than 50%. 3. Antegr raya flow is seen in both verteb ral arteri es. Final Signed by: BUCK SINCLAIR MD Signed (Elect alissa Signat ure): 2023 02:11 pm EDT Rad Image Link [facility] (Imaging) [address] [facility] [place], [address], 11/18/2023 14:54:38 11/20/19 24 elect rocraymond venegas am No observ ation record ed. [facility] [address] [place], [address], 11/20/2023 09:19:32 05/18/19 25 elect rocraymond diogr am No observ ation record ed. [facility] [address] [place], [address], 05/18/2024 12:34:40 05/20/19 25 coni venegas am No observ ation record ed. TERELL [facility] [address] [facility] [address], [place], [address], 05/20/2024 15:07:43 Result Notes None recorded. Problems Name Problem SNOMED Code Status Onset Date Resolution Date Notes Provider Name and Address Organization Details Recorded Time Benign essential hypertensio n 2962678 Active 2011 Chroni c; Kellen Zhang SENIOR USER EXPERIENCE ARCHITECT null, [facility] 3 08:47:59 Anemia 646251335 Active 2011 Chroni c; Kellen Zhang SENIOR USER EXPERIENCE ARCHITECT null, [place] [facility] 3 08:48:00 Hyperlipide ladan 73464131 Active 2011 Chroni c; Kellen Zhang , SENIOR USER EXPERIENCE ARCHITECT null, [place] [facility] 3 08:48:00 Venous varices 075501046 Active 2014 Kellen Zhang SENIOR USER EXPERIENCE ARCHITECT null, [place] [facility] 3 08:47:59 Open wound of foot 342825366 Active 2014 Kellen Zhang SENIOR USER EXPERIENCE ARCHITECT null, [place] [facility] 3 08:47:59 Coronary arterioscle rosis 22033051 Active 2014 Kellen Zhang SENIOR USER EXPERIENCE ARCHITECT null, [place] [facility] 3 08:48:00 Disorder of carotid artery 722821630 Active 2015 Kellen Zhang SENIOR USER EXPERIENCE ARCHITECT null, [place] [facility] 3 08:48:00 Ventricular premature beats 00462742 Active 2015 Kellen Zhang SENIOR USER EXPERIENCE ARCHITECT null, [place] [facility] 3 08:47:59 Blood coagulation disorder 58825442 Active 2019 Kellenmona Zhang SENIOR USER EXPERIENCE ARCHITECT null, [place] - [facility] 3 08:48:00 Atrial fibrillatio n 91626460 Active 2017 Kellen Zhang SENIOR USER EXPERIENCE ARCHITECT null, [place] [facility] 3 08:48:00 Blood in urine 25883581 Active 2018 Kellen Zhang SENIOR USER EXPERIENCE ARCHITECT null, [place] - [facility] 3 08:48:00 Azotemia 621805238 Active 2018 Kellenmona Zhang SENIOR USER EXPERIENCE ARCHITECT null, [place] - [facility] 3 08:48:00 Feces contents abnormal 324200304 Active 2018 Kellenmona Zhang SENIOR USER EXPERIENCE ARCHITECT null, [place] - [facility] 3 08:47:59 Methicillin resistant Staphylococ cus aureus infection 037608144 Active 2018 Kellenmona Zhang SENIOR USER EXPERIENCE ARCHITECT null, [place] - [facility] 3 08:47:59 Abscess of foot 049980075 Active 2018 Kellenmona Zhang SENIOR USER EXPERIENCE ARCHITECT null, [place] - [facility] 3 08:48:00 Chronic renal impairment Active 2018 Kellenmona Zhang SENIOR USER EXPERIENCE ARCHITECT null, [place] - [facility] 3 08:47:59 Renal mass 691652225 Active 2018 Kellen Zhang SENIOR USER EXPERIENCE ARCHITECT null, [place] - [facility] 3 08:48:00 Osteoporosi s 10228286 Active 2018 Kellen Zhang SENIOR USER EXPERIENCE ARCHITECT null, [place] [facility] 3 08:48:00 Induration penis plastica 9154365 Active 2016 Kellen Zhang SENIOR USER EXPERIENCE ARCHITECT null, [place] - [facility] 3 08:47:59 Spasm 22321784 Active 2016 Kellen Zhang SENIOR USER EXPERIENCE ARCHITECT null, [place] - [facility] 3 08:48:00 Disorder of joint of ankle and/or foot 925885151 Active 2017 Kellen Zhang LPN null, [place] - [facility] 3 08:48:00 Ulcer of foot 36657033 Active 2017 Kellen Zhang LPN null, [place] [facility] 3 08:48:00 Hypothyroid ism 35803842 Active 2002 Kellen Zhang LPN null, [place] - [facility] 3 08:48:00 Cyst of kidney 454061313 Active 2021 Kellen Zhang LPN null, [place] [facility] 3 08:48:00 Benign prostatic hyperplasia with outflow obstruction 546885750 Active 2021 Kellen Zhang LPN null, [place] - [facility] 3 08:47:59 Pain of joint of ankle 303846124 Active 2003 Kellen Zhang LPN null, [place] [facility] 3 08:47:59 Charcot's arthropathy 320723382 Active 2018 Kellen Zhang LPN null, [place] [facility] 3 08:48:00 Hypertensiv e disorder 75784528 Active 2003 Kellen Zhang LPN null, [place] - [facility] 3 08:48:00 Disorder of the peripheral nervous system 76481283 Active 2002 Kellen Zhang LPN null, [place] [facility] 3 08:48:00 Persistent atrial fibrillatio n 078855800 Completed 201803/31/2019 Kellen Zhang LPN null, [place] - [facility] 3 08:48:00 Acquired hallux malleus 67123711 Active 2005 Kellen Zhang LPN null, [place] [facility] 3 08:48:00 Varicose veins of lower limb co-occurren t with edema 197795933 Active 2022 Kenyon Browne MD [address] [place], [address], [place] - [facility] 3 15:16:46 Varicose veins of lower extremity 45665509 Active 2022 Kenyon Browne MD [address] [place], [address], [place] - [facility] 3 15:18:10 Lymphedema 479437439 Active 2023 Kenyon Browne MD [address] [place], [address], [place] - [facility] 4 09:39:47 Mitral valve regurgitati on 83859660 Active 2023 Buck Sinclair MD [address] [place], [address], [place] - [facility] 4 14:05:39 Bilateral stenosis of carotid arteries 977540589 Active 2023 Buck Sinclair MD [address] [place], [address], [place] - [facility] 4 14:05:46 Notes:Some problems listed i n Document: #[id number] could not be added to this patient's chart. Please review this document and add these problems to the patient's chart manually as needed. Problem Notes None recorded. Procedures Surgical History Date Name Laterality Status Provider Name and Address Organization Details Recorded Time 07/29/19 IPSS completed Mimi Ruiz LPN [facility] 07/29/2023 08:30:27 06/11/19 24 Surgery Center - PVR completed Kenyon Browne MD [address] [place], [address], [place] - [facility] 06/11/2023 09:09:42 06/11/19 24 Surgery [facility] Lower Extremities / Bypass Graft completed Briseida Valencia [facility] - [facility] 06/11/2023 08:58:00 02/13/20 23 Surgery [facility] [place] Lower Extremity Venous completed Briseida Valencia [facility] - [facility] 02/12/2023 14:54:59 07/31/19 23 IPSS completed Meredith Patels [facility] - [facility] 07/30/2022 08:37:06 01/17/20 22 Surgery [facility] [place] Lower Extremity Venous completed Owen Olivo MD [address] [place], [address], [facility] 01/16/2022 11:29:21 04/22/19 22 surgery of cataract of left eye completed Meredith Patels [facility] - [facility] 07/30/2022 08:42:54 01/03/20 21 Surgery [facility] PVR completed Owen Olivo MD [address] [place], [address], [place] - [facility] 01/03/2021 09:31:21 01/03/20 21 Surgery [facility] [place] Lower Extremity Venous completed Andres Neville MD [address] [place], [address], [place] - [facility] 01/03/2021 12:53:06 stripping of vein completed Kellen Zhang SENIOR USER EXPERIENCE ARCHITECT [place] - [facility] 07/31/2021 09:39:51 excision of bunion completed Kellen Zhang SENIOR USER EXPERIENCE ARCHITECT [place] - [facility] 07/31/2021 09:41:44 kidney biopsy completed Kellen Zhang SENIOR USER EXPERIENCE ARCHITECT [place] - [facility] 07/31/2021 09:43:00 cardioversion completed Kellen Zhang SENIOR USER EXPERIENCE ARCHITECT [facility] 07/31/2021 09:44:15 Imaging Results None recorded. Procedure Notes None recorded. Medical Equipment None Reported. Allergies Allergen ID Allergen Name Allergen Category Reaction Reaction Severity Criticality Documentation Date Start Date Code Code System Note Provider Name and Address Organization Details Recorded Time 316258 ethinyl estradiol / levonorge strel medicatio n Not available Not available Not available 01/16/2021 85159 8 RxNorm JOHN Craft [facility] - [facility] 14:43:13 Medications Name Sig Start Date [...] prednisol one acetate 1 % eye drops,marleny pension 11/06 completed Not Available Not Available Not [...] Not Available Not Available Vitals Date Recorded Systolic And Diastolic Provider Name and Address Organization Details Last Updated DateTime 05/18/2024 148/84 mm[Hg] Damon Paul [address] [place] [address], [address], [facility] 05/18/2024 12:28:06 Date Recorded Body height Body mass index (BMI) Body weight Heart rate Respiratory rate Oxygen saturation Oxygen saturation in Arterial blood by Pulse oximetry Provider Name and Address Organization Details Last Updated DateTime 182.88 cm 35.3 kg/m2 604239. 02 g 110 /min 16 /min 98 % 98 % Zita Vazquez MA [facility] 12:20:09 Date Recorded Body height Body mass index (BMI) Body weight Heart rate Systolic And Diastolic Provider Name and Address Organization Details Last Updated DateTime 07/12/2023 182.88 cm 36.5 kg/m2 755542.3 5 g 82 /min 128/80 mm[Hg] Viviana Beckman [facility] 07/12/2023 13:09:17 Date Recorded Body height Body mass index (BMI) Body weight Systolic And Diastolic Provider Name and Address Organization Details Last Updated DateTime 07/29/2023 182.88 cm 36.5 kg/m2 129088.35 g 110/80 mm[Hg] Mimi Ruiz LPN [facility] 07/29/2023 08:26:19 Date Recorded Body height Body mass index (BMI) Body weight Heart rate Oxygen saturation Oxygen saturation in Arterial blood by Pulse oximetry Systolic And Diastolic Provider Name and Address Organization Details Last Updated DateTime 182.88 cm 35.1 kg/m2 187962. 42 g 89 /min 98 % 98 % 142/86 mm[Hg] Kaya Blanco MA [facility] 4 10:11:06 Date Recorded Body height Body mass index (BMI) Body weight Heart rate Systolic And Diastolic Provider Name and Address Organization Details Last Updated DateTime 02/03/2024 182.88 cm 34.6 kg/m2 949297.0 5 g 84 /min 120/82 mm[Hg] Marilou Lees MA [facility] 02/03/2024 12:41:22 Social History Question Answer Notes LastModified by OrganizPrizzm ion Details LastModified Time Tobacco Smoking Status Former Smoker JOHN Reich, [facility] 07/14/2020 13:40:11 Do You Have An Advance Directive? No Information not available 05/03/2022 What Is Your Level Of Caffeine Consumption? Occasional Information not available 07/31/2021 When Did You Quit Smoking? 16+yearssinnaderlydia pisano [email or web address] Information not available 10/31/2021 Do You Have A Medical Power Of Insights Analyst? No Information not available 05/03/2022 What Was The Date Of Your Most Recent Tobacco Screening? 07/29/2023 [email or web address] Information not available 07/29/2023 Sex: Unknown Functional Status Question Answer Note LastModified by Organizat ion Details LastModified Time Do you use any illicit or recreational drugs? No Information not available 05/03/2022 Do you or have you ever used any other forms of tobacco or nicotine? No [email or web address] Information not available 01/16/2021 What is your level of alcohol consumption? None Information not available 07/31/2021 Do you or have you ever used smokeless tobacco? Never used smokeless tobacco Information not available 07/14/2020 Do you or have you ever used e-cigarettes or vape? Never used electronic cigarettes Information not available 07/14/2020 Mental Status None recorded. Family History Relationship Description Onset Age of this Age Resolved Age Notes LastModified by Organization Details LastModified Time Mother Diabetes mellitus [email or web address] Not available 07/21 09:36:15 Medical History Condition Response Coronary Artery Disease Y Other N Atrial Fibrillation Y Colon Cancer N Kidney Stones N Enlarged Prostate N Hyperthyroidism N Glaucoma N COPD N Depression N Lung Disease N Hypothyroidism Y Degenerative Joint Disease N Valve Disorder N TIA N Enterocolitis N Congestive Heart Failure N Obstructive Sleep Apnea N Seasonal Allergies N Anxiety Disorder N Respiratory Disorder N Arthritis N Diverticulosis N Cancer N DVT/Pulmonary Embolism N GERD / heartburn N Crohn's Disease N Inflammatory Bowel Syndrome N Hypercholesterolemia N Liver Disease N Rheumatoid Arthritis N Alcohol Abuse N Fibromyalgia N Headaches N Kidney Disease N Hiatal Hernia N Hospitalizations N Gallstones N Abdominal Aortic Aneurysm N Thyroid Problems N Avoidant/Restrictive Food Disorder N PTSD N PATIENT DENIES SIGNIFICANT PAST MEDICAL HISTORY N Constipation N Heart Attack (DE) N Neurological Problems N Diabetes N Rheumatic [...] influenza, unspecified formulation 12/14/2019 completed Kellen Zhang SENIOR USER EXPERIENCE ARCHITECT null, [facility] 07/30/2022 08:48:00 Influenza, recombinant, quadrivalent, PF 01/21/2019 completed Kellen Cornellobacprincess, SENIOR USER EXPERIENCE ARCHITECT null, [facility] 07/30/2022 08:48:00 Td(adult) unspecified formulation 05/16/2009 completed Kellen Zhang SENIOR USER EXPERIENCE ARCHITECT null, [facility] 07/30/2022 08:48:00 SARS-COV-2 (COVID-19) vaccine, UNSPECIFIED 04/22/2020 completed Kellen Zhang SENIOR USER EXPERIENCE ARCHITECT null, [facility] 07/30/2022 08:48:00 SARS-COV-2 (COVID-19) vaccine, UNSPECIFIED 05/23/2020 completed Kellen Iacobacci, SENIOR USER EXPERIENCE ARCHITECT null, [facility] - [facility] 07/30/2022 08:48:00 SARS-COV-2 (COVID-19) vaccine, UNSPECIFIED 02/16/2021 completed Kellen Iacobacci, SENIOR USER EXPERIENCE ARCHITECT null, [place] - [facility] 07/30/2022 08:48:00 COVID-19, mRNA, LNP-S, PF, 100 mcg/0.5mL dose or 50 mcg/0.25mL dose 05/14/2020 completed Kellen Iacobacci, SENIOR USER EXPERIENCE ARCHITECT null, [place] - [facility] 07/30/2022 08:48:00 COVID-19, mRNA, LNP-S, PF, 100 mcg/0.5mL dose or 50 mcg/0.25mL dose 06/18/2020 completed Kellen Iacobacci, SENIOR USER EXPERIENCE ARCHITECT null, [place] - [facility] 07/30/2022 08:48:00 COVID-19, mRNA, LNP-S, PF, 100 mcg/0.5mL dose or 50 mcg/0.25mL dose 07/24/2021 completed Kellen Iacobacci, SENIOR USER EXPERIENCE ARCHITECT null, [place] - [facility] 07/30/2022 08:48:00 COVID-19, mRNA, LNP-S, PF, 100 mcg/0.5mL dose or 50 mcg/0.25mL dose 02/16/2021 completed Kellen Iacobacci, SENIOR USER EXPERIENCE ARCHITECT null, [place] - [facility] 07/30/2022 08:48:00 Influenza, split virus, quadrivalent, PF 12/27/2020 completed Kellen Iacobacci, SENIOR USER EXPERIENCE ARCHITECT null, [place] - [facility] 07/30/2022 08:48:00 Past Encounters Encounter ID Performer Location Encounter Start Date Encounter Closed Date Diagnosis/Indication Diagnosis SNOMED-CT Code Diagnosis ICD10 Code Diagnosis Note [id number] Buck Sinclair MD [facility] [address] [place] [address] 07/14/2020 13:34:25 07/14/2020 14:20:05 Atrial fibrillation 20243976 I48.91 on sotalol and Warfarin Coronary arteriosclerosis 70172460 I25.10 On Crestor Hyperlipidemia 83157959 E78.5 Crestor Benign ess ential hypertension 5560169 I10 on diltiazem Dyspnea 589171972 R06.00 Dyspnea on dressing and undressing 609384222 R06.02 [id number] Sincere William MD [facility]CARD_W [facility] [address] [address] 10/27/2020 11:07:48 10/27/2020 12:10:52 Atrial fibrillation 42271829 I48.91 Remains in A. fib with well-contr olled rates. Continue diltiazem sotalol and Coumadin. We are now getting to the point where restoratio n of sinus rhythm is probably going to be difficult to achieve. May consider discontinu ing sotalol in favor of metoprolol . Ablation window was also probably narrowing at this point. Benign ess ential hypertension 0177801 I10 Blood pressure stable. Continue diltiazem Blood in urine 89435569 R31.9 No further recurrence of hematuria. Continue Coumadin. If bleeding recurs consider left atrial appendage occlusion. [id number] Andres eNville MD [facility] Surgery [address] [place] [address] 01/02/2021 13:52:20 01/03/2021 15:03:57 Venous varices 645634027 I83.93 [id number] Owen Olivo MD [facility] Surgery [address] [place] [address] 01/02/2021 13:54:12 01/05/2021 09:46:47 Abscess of foot 373589583 L02.619 Disorder o f joint of ankle and/or foot 196975693 M12.872 Open wound of foot 50003 3008 S91.302D Ulcer of foot 79447925 L 97.521 Venous varices 828591771 I83.93 [id number] Owen Olivo MD [facility] Surgery [address] [place] [address] 01/16/2021 14:36:25 01/16/2021 15:02:05 Varicose veins of lower extremity 29054518 I83.91 Patient with asymptomat ic right lower extremity varicose veins plan to see him back in a year with a repeat venous Doppler otherwise I am going to set him up with a Farrow wrap for his right leg. [id number] MD Adilson LyonsZZCONCEPCIÓN_6 [facility] [address] [facility], [address] [place] [address] 01/17/2021 14:54:49 01/17/2021 16:26:54 Atrial fibrillation 97696959 I48.91 on sotalol and Warfarin Benign ess ential hypertension 2253062 I10 on diltiazem Coronary arteriosclerosis 26410741 I25.10 On Crestor Hyperlipidemia 54013339 E78.5 Crestor Mitral kelton ve regurgitation 13933938 I34.0 for 2 D echo [id number] MD FLORA PaulD_W [facility] 545 [facility] [place] [address] [place] [address] [place] [address] 05/02/2021 09:20:55 05/02/2021 13:44:46 Atrial fibrillation 69333753 I48.91 Remains in A. fib with well-contr olled rates. Because of his fatigue and dyspnea on exertion will discontinu e sotalol and use diltiazem alone for rate control. Hopefully this will help improve some of his fatigue and shortness of breath. Benign ess ential hypertension 2071387 I10 Blood pressure stable. Continue diltiazem Blood in urine 16054558 R31.9 No further recurrence of hematuria. Continue Coumadin. If bleeding recurs consider left atrial appendage occlusion. [id number] MD Adilson LyonsZZCONCEPCIÓN_6 [facility] [address] [facility], [address] [place] [address] 06/26/2021 12:40:03 06/26/2021 13:40:38 Atrial fibrillation 62484379 I48.91 on sotalol and Warfarin Benign ess ential hypertension 1259169 I10 on diltiazem Coronary arteriosclerosis 41905247 I25.10 On Crestor Hyperlipidemia 91653207 E78.5 Crestor Bilateral carotid artery occlusion 305354428 I65.23 for carotid doppler [id number] Pancho Barrera, [facility] [address] [facility] [address] [place] [address] 07/31/2021 08:54:12 07/31/2021 10:01:21 Benign prostatic hyperplasia with outflow obstruction [id number] N40.1 Prostate exam is benign. He does have some lower urinary symptoms. We discussed medical therapy for this. He states he will consider this and notify me if he decides to move forward with medical therapy. I will otherwise see him back in 1 year for PSA and a prostate exam Cyst of kidney 962494823 N28.1 Renal cyst is generally stable. This should be monitored annually. [id number] DO FABIANA [facility] [address] [facility] [address] [place] [address] 07/30/2022 08:20:10 07/30/2022 09:17:33 Cyst of kidney 256200208 N28.1 His renal cyst remained stable over time. He should be monitored annually Benign pro static hyperplasia with outflow obstruction 470089507 N40.1 Prostate exam is benign. He does [...] informatio n on Uro[employer]ift Induration penis plastica 6337231 N48.6 This has been an unaddresse d issue for him. He states that he is accommodat ing the problem and it is not a priority to him at this time. We will therefore intervene at his request [id number] Sincere William MD ZZZCARD_W [facility] [address] [address] [place] [address] 10/31/2021 09:27:45 10/31/2021 14:17:30 Atrial fibrillation 44082652 I48.91 Remains in A. fib with well-contr olled rates. His fatigue improved with discontinu ation of sotalol but still has shortness of breath and dyspnea on exertion. Rates are well controlled . Continue current dose diltiazem. Continue warfarin. Benign ess ential hypertension 0992665 I10 Blood pressure stable. Continue diltiazem Blood in urine 87345487 R31.9 No further recurrence of hematuria. Continue Coumadin. If bleeding recurs consider left atrial appendage occlusion. [id number] Owen Olivo MD [facility] [address] [place] [address] 01/16/2022 09:03:55 01/16/2022 11:30:01 Varicose veins of lower extremity 06088271 I83.91 Venous varices 025274343 I83.93 [id number] Buck Sinclair MD ZZZCARD_6 [facility] [address] [place] [address] 12/29/2021 13:21:11 12/29/2021 14:18:20 Atrial fibrillation 38357733 I48.91 on sotalol and Warfarin Benign ess ential hypertension 9212005 I10 on diltiazem Coronary arteriosclerosis 93463235 I25.10 On Crestor Hyperlipidemia 21003784 E78.5 Crestor Mitral kelton ve regurgitation 30163762 I34.0 for 2 D echo Obesity 827380458 E66.9 loose weight [id number] Owen Olivo MD [facility] [address] [place] [address] 01/16/2022 09:02:51 01/16/2022 09:51:41 Pain due to varicose veins of lower extremity 090879805 I83.819 Patient with bilateral lower extremity varicose veins at this point he has no pain or discomfort he did have a closure done on the right and he does reflux on the left but does not wish to undergo closure on the left at this time plan to see him back in a year with repeat venous Doppler [id number] MD Adilson PaulZZCONCEPCIÓN_W [facility] [address] [address] 05/03/2022 09:09:41 05/03/2022 14:49:12 Atrial fibrillation 59718566 I48.91 Remains in A. fib with well-contr olled rates. Rates are well controlled . Continue current dose diltiazem. Continue warfarin. Benign ess ential hypertension 8277625 I10 Blood pressure stable. Continue diltiazem Blood in urine 37324164 R31.9 No further recurrence of hematuria. Continue Coumadin. If bleeding recurs consider left atrial appendage occlusion. [id number] Buck Sinclair MD ZZZPRAVEEND_6 [facility] [address] [facility], [address] [place] [address] 07/03/2022 13:10:02 07/03/2022 13:37:38 Atrial fibrillation 81733689 I48.91 on sotalol and Warfarin Benign ess ential hypertension 6412088 I10 on diltiazem Coronary arteriosclerosis 44238552 I25.10 On Crestor Hyperlipidemia 18371264 E78.5 Crestor Mitral kelton ve regurgitation 53085851 I34.0 for 2 D echo Bilateral carotid artery occlusion 335588534 I65.23 for carotid doppler [id number] Pancho Barrera DO [facility] [address] [facility] [address] [place] [address] 07/29/2023 08:02:04 07/29/2023 08:44:18 Benign prostatic hyperplasia with outflow obstruction 156761798 N40.1 He has chronic lower urinary symptoms but he does not want to pursue treatment at this time. He if he changes his mind, he will contact me Cyst of kidney 513538677 N28.1 His renal cyst remained stable over time. He should be monitored annually [id number] MD Adilson PaulZZPRAVEEND_W [facility] [address] [address] [place] [address] 11/06/2022 09:50:00 11/06/2022 10:15:54 Atrial fibrillation 15114020 I48.91 Remains in A. fib with well-contr olled rates. Rates are well controlled . Continue current dose diltiazem. Continue warfarin. Benign ess ential hypertension 6972076 I10 Blood pressure stable. Continue diltiazem Blood in urine 31943724 R31.9 No further recurrence of hematuria. Continue Coumadin. If bleeding recurs consider left atrial appendage occlusion. [id number] MD ALIVIA Lyons_6 [facility] [address], [address] [place] [address] 01/08/2023 12:54:25 01/08/2023 13:43:46 Atrial fibrillation 94139654 I48.91 on sotalol and Warfarin Coronary arteriosclerosis 93338980 I25.10 On Crestor Benign ess ential hypertension 4997849 I10 on diltiazem Hyperlipidemia 47856518 E78.5 Crestor Mitral kelton ve regurgitation 53140873 I34.0 for 2 D echo [id number] Kenyon Browne MD [facility] [address] [place] [address] 02/12/2023 13:46:56 02/12/2023 15:20:07 [id number] Kenyon Browne MD [facility] [address] [place] [address] 02/12/2023 13:47:43 02/12/2023 15:31:48 Varicose veins of lower extremity 74470485 I83.90 Undoubtedl y his lower extremity varicose [...] to be performed the left side Hyperlipidemia 01049821 E78.5 He is on rosuvastat in 5 mg daily but I do not see a lipid panel within the last year and we will certainly coordinate for him to get one in the near future. [id number] Sincere William MD [facility] [address] [facility] [address] [place] [address] 05/16/2023 10:24:27 05/16/2023 10:42:26 Atrial fibrillation 22580114 I48.91 Remains in A. fib with well-contr olled rates. Rates are well controlled . Continue current dose diltiazem. Continue warfarin. Benign ess ential hypertension 1963482 I10 Blood pressure stable. Continue diltiazem Blood in urine 21619743 R31.9 No further recurrence of hematuria. Continue Coumadin. If bleeding recurs consider left atrial appendage occlusion. [id number] Kenyon Browne MD [facility] [address] [place] [address] 06/11/2023 08:02:33 06/11/2023 09:32:20 Varicose veins of lower limb co-occurrent with edema 270040595 I83.899 I did offer him varicose vein [...] 3 months for further evaluation and Lymphedema 771409165 I89 .0 I believe he likely has [...] off of antibiotic s and hospital course [id number] Kenyon Browne MD [facility] [address] [place] [address] 06/11/2023 08:04:11 06/11/2023 09:26:16 Peripheral vascular disease 257115083 I73.9 [id number] Buck Sinclair MD [facility]_[address] [place] [address] [address] [place] [address] 07/12/2023 12:53:42 07/12/2023 14:11:06 Coronary arteriosclerosis 09811776 I25.10 on rosuvastat in Atrial fibrillation 4943 6004 I48.91 on Eliquis Benign ess ential hypertension 6404680 I10 on lisinopril Hyperlipidemia 94274776 E78.5 on rosuvastat in Mitral kelton ve regurgitation 09606218 I34.0 for 2 d echo Bilateral stenosis of carotid arteries 930990976 I65.23 [id number] MD JANEE Paul_[facility] [address] [place] [address] 11/14/2023 09:59:40 11/14/2023 10:32:10 Atrial fibrillation 66202407 I48.91 Remains in A. fib with well-contr olled rates. Rates are well controlled . Continue current dose diltiazem. Continue warfarin. Benign ess ential hypertension 5984613 I10 Blood pressure stable. Continue diltiazem and lisinopril Blood in urine 73134746 R31.9 No further recurrence of hematuria. Continue Coumadin. If bleeding recurs consider left atrial appendage occlusion. [id number] Buck Sinclair MD [facility] [address] [facility] [address] [place] [address] 02/03/2024 12:26:23 02/03/2024 13:17:11 Atrial fibrillation 91352788 I48.91 on Warfarin, INR 2-3 Coronary arteriosclerosis 70959704 I25.10 on rosuvastat in Hypertensive disorder 38 827853 I10 on cardizem Mitral kelton ve regurgitation 54434700 I34.0 for 2 d echo [id number] MD JANEE Paul[facility] [address] [place] [address] 05/18/2024 12:08:42 05/18/2024 12:36:01 Atrial fibrillation 62432676 I48.91 Remains in A. fib with well-contr olled rates. Rates are well controlled . Continue current dose diltiazem. Continue warfarin. Benign ess ential hypertension 8117484 I10 Blood pressure stable. Continue diltiazem and lisinopril Blood in urine 78435885 R31.9 No further recurrence of hematuria. Continue [...] MEDICAL ASSISTANCE [place]GRAMS [place] Miriam Strickland [id number] Miriam Strickland 02/24/2020 1 *SELF PAY* Fr naomie Strickland 12/07/2022 1 [employer] FAMILY (MEDICAID HMO) [id number] Miriam Strickland [id number] Miriam Strickland 05/11/2024 1 [place] Miriam Strickland [id number] Miriam Strickland 07/29/2023 2 [place]: OFFICE OF MEDICAL ASSISTANCE [place]GRAMS [place]) Miriam Strickland [id number] Miriam Strickland 02/26/2024 2 [place] [facility] [place] [facility] CHO[facility] (MEDICAID HMO) Miriam Strickland [id number] Miriam Strickland Notes Date Note Type Note [...] couple of weeks. Buck Sinclair MD [address] [place], [address], [place] [facility] [place] [facility] 07/12/2023 14:07:22 07/29/2023 text/html 63-year-old male here [...] DO [address], [place], [address], [facility] 07/29/2023 08:47:03 11/14/2023 text/html Since I last saw Miriam has been stable from a cardiovascular arrhythmia standpoint. Sincere William MD [address] [place], [address], [facility] 11/14/2023 10:26:09 02/03/2024 text/html Patient presents for follow up for A.fib, CAD.Cardiac cath shows CAD. Carotid disease, Mitral regurge, Hyperlipidemia remains stable, Hypertension remains stable, No chest pain. No palpitation. Has no sig. SOB with exertion. Buck Sinclair MD [address] [place], [address], [facility] 02/03/2024 13:14:58 05/18/2024 text/html Since I last saw Miriam has been stable from a cardiovascular arrhythmia standpoint. Sincere William MD [address] [place], [address], [facility] 05/18/2024 12:35:10
--- NOTE | 2024-10-27 11:00 | HO.NEPHOV ---
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 He had undergone treatment with high-dose steroids which has been tapered off. He has gained quite a bit of weight on prednisone. He is not a diabetic. He does not monitor his blood pressure at home. He has history of AFib and had undergone cardioversion multiple times. He is currently on diltiazem as well as warfarin. He has hypothyroidism and is well controlled on levothyroxine. He has history of minimal proteinuria and is tolerating lisinopril he had undergone cardiac catheterization in the past but denied any significant coronary artery disease.. He had history of hematuria in the past and has seen urology in [place]. He is known to have a renal cyst but further workup done was negative for hematuria. He has no proteinuria now. He is known to have bilateral carotid disease. He denies any recurrent sinusitis, upper respiratory infection, skin rash. He has history of lymphedema. He does not take nonsteroidal anti-inflammatories and maintain good hydration. He has dyslipidemia and is on statins. He denies chest pain, shortness of breath, paroxysmal nocturnal dyspnea, orthopnea or urinary symptoms. He claims to be compliant with his medications. [facility] Medical History (Updated 07/21/24 @ 21:50 by David Lao MD) History of cardioversion Low back pain Tabetic joint Benign essential hypertension Anemia Hypothyroidism Open wound of foot Disorder of carotid artery Ventricular premature beats Coronary arteriosclerosis Induratio penis plastica Spasm Unspecified disorder of ankle and foot joint Ulcer of foot Atrial fibrillation Blood in urine Azotemia Methicillin resistant Staphylococcus aureus infection, unspecified site Abscess of foot Chronic renal impairment Renal mass Osteoporosis Blood coagulation disorder Hyperlipidemia Surgical History H/O cardiac catheterization History of bunionectomy History of cataract surgery H/O biopsy of kidney H/O thumb surgery H/O ankle fusion H/O foot surgery Family History Mother Diabetes Father No problems noted. Social History Alcohol intake: never Patient Tobacco Use Status: Former Tobacco user Review of Systems Const All systems reviewed & are unremarkable except as noted in HPI and below Physical Exam Vital Signs: Last Vital Signs Pulse 83 10/27/24 11:03 BP 120/90 H 10/27/24 11:03 Pulse Ox 98 10/27/24 11:03 Oxygen Delivery Method Room Air 10/27/24 11:03 BMI result Body Mass Index 35.9 Const General: comfortable and no acute distress Orientation/consciousness: patient oriented x3 HEENT Head: Yes normocephalic Mouth: Normal oral and palatal mucosa present Eyes EOM: EOMs intact bilaterally Neck Neck: Yes supple Resp Auscultation: clear to auscultation bilaterally Cardio Jugular venous distension: no JVD Rate: regular rate GI Palpation (GI): Soft to palpation Auscultation: normal bowel sounds General: Yes no CVA tenderness Back/Spine/Pelvis Back: no CVA tenderness Skin General skin exam: no rashes or lesions noted Neuro General: patient oriented x3 and moves all extremities Results Reviewed Nephrology Results: Sodium, (135-145) 139 mmol/L 07/21/24 Potassium, (3.3-5.1) 4.1 mmol/L 07/21/24 Chloride, (96-108) 107 mmol/L 07/21/24 Carbon Dioxide, (22-29) 23 mmol/L 07/21/24 BUN, (9-16) 23 mg/dL H 07/21/24 Creatinine, (0.5-1.4) 1.13 mg/dL 07/21/24 Urine Protein, (Neg-Trace) Negative mg/dL 07/21/24 Urine Creatinine 123.70 mg/dL 07/21/24 Protein/Creatinin Ratio, (<0.2) 0.09 07/21/24 Renal US 08/28/24 Assessment & Plan Assessment & Plan (1) Benign essential hypertension: Code(s): I10 - Essential (primary) hypertension Category: Medical (2) Renal cyst: Code(s): N28.1 - Cyst of kidney, acquired Category: Medical (3) CKD (chronic kidney disease) stage 2, GFR 60-89 ml/min: Code(s): N18.2 - Chronic kidney disease, stage 2 (mild) Category: Medical (4) 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 He has hypertension. He is on MARY inhibitor. He needs to lose weight. The diltiazem he takes for rate control also ARB helping with his proteinuria. He needs to cut back sodium in the diet and should maintain good hydration. He is on statins. He avoids nonsteroidal anti-inflammatories. He will benefit from taking fish oil. I did not make any medication changes today but rather discussed IgA nephropathy, hypertension, renal cyst its follow-up and continued management strategies. Answered all questions. 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, N18.2 - Chronic kidney disease, stage 2 (mild), N28.1 - Cyst of kidney, acquired Protein Creatinine Ratio, Ur 8 Months I10 - Essential (primary) hypertension, 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
[2024-10-27 11:03] VITALS: BP 120/90; PULSE 83; O2SAT 98; BMI 35.9
== END 2024-10-27 11:26 | disposition home or self-care (01) ==
LOC: HO.HKAS 10:10
PROVIDERS: Visit Provider Internal Medicine Nephrology
DX: I12.9 Hypertensive chronic kidney disease with stage 1 through stage 4 chronic kidney disease, or unspecified chronic kidney disease (principal); N18.2 Chronic kidney disease, stage 2 (mild); N28.1 Cyst of kidney, acquired; N02.B9 Other recurrent and persistent immunoglobulin A nephropathy
CPT/HCPCS: 99214

== ENCOUNTER → 2024-10-27 10:10 | Outpatient (BNVA) | payer MEDICARE, MEDICAID, SELFPAY | PROVIDERS: Visit Provider Internal Medicine Nephrology | DX: N02.B9 Other recurrent and persistent immunoglobulin A nephropathy (principal); I10 Essential (primary) hypertension; N18.2 Chronic kidney disease, stage 2 (mild); N28.1 Cyst of kidney, acquired; I48.91 Unspecified atrial fibrillation; Z79.899 Other long term (current) drug therapy; Z79.01 Long term (current) use of anticoagulants; Z98.890 Other specified postprocedural states | CPT/HCPCS: 99212 ==